=== PATIENT | male | born 1995 | race Caucasian/White ===

== ENCOUNTER 2021-10-12 15:39 | Emergency (ER) | payer MEDICAID ==
[~2021-10-12] VITALS: Ht 170.2 cm; Wt 79.4 kg
[2021-10-12 15:39] VITALS: BP 163/75
--- NOTE | 2021-10-12 15:39 | NUR ---
TANI NUNEZ AND PLACED IN BED 12 BY EMS.
[2021-10-12] MEDS ORDERED: PANTOPRAZOLE 40 MG INJ VIAL IVP ONE (16:10)
[2021-10-12] MEDS ORDERED: METOCLOPRAMIDE 10 MG/2 ML INJ VIAL IVP ONE (16:10)
[2021-10-12] MEDS ORDERED: diphenhydrAMINE 50 MG/ML VIAL IVP ONE (16:10)
[2021-10-12] MEDS ORDERED: NACL 0.9% 1,000 ML IV ONE (16:10)
[2021-10-12] MEDS ORDERED: KETOROLAC 15 MG/ML VIAL IVP ONE (16:10)
[2021-10-12 16:40] LABS: BASOPHILS % (AUTO) 0.4 % (0.0-2.0); EOSINOPHILS % (AUTO) 0.2 % (0.0-4.0); HEMATOCRIT 47.1 % (36-52); HEMOGLOBIN 16.4 g/dL (12.0-18.0); LYMPHOCYTES # (AUTO) 1.4 K/uL (2.0-11.5); LYMPHOCYTES % (AUTO) 16.5 % (20.5-51.1); MEAN CORPUSCULAR HEMOGLOBIN 29 pg (27-31); MEAN CORPUSCULAR HGB CONC 35 g/dL (33-37); MEAN CORPUSCULAR VOLUME 82.4 fL (80-94); MONOCYTES # (AUTO) 0.6 K/uL (0.8-1.0); MONOCYTES % (AUTO) 6.9 % (1.7-9.3); NEUTROPHILS # (AUTO) 6.6 K/uL (1.8-7.7); PLATELET COUNT (AUTO) 238 K/uL (140-450); RED BLOOD CELL COUNT(AUTO) 5.72 MIL/uL (4.20-6.10); RED CELL DISTRIBUTION WIDTH 12.6 % (11.6-13.7); WHITE BLOOD COUNT (AUTO) 8.6 K/uL (4.8-10.8)
--- NOTE | 2021-10-12 17:00 | NUR ---
26 YO M BIBA W C/O ABDOMINAL PAIN WITH N/V X2 DAYS. PT STOPPED SMOKING MARIJUANA 2 DAYS AGO, SEES A GI SPECIALIST FOR "STOMACH ULCERS" HX: ULCERS, GERD NKDA
[2021-10-12 17:06] LABS: ALBUMIN 4.5 g/dL (3.4-5.0); CARBON DIOXIDE 21.8 mmol/L (21-32); CREATININE 1.1 mg/dL (0.6-1.3); POTASSIUM 3.8 mmol/L (3.5-5.1); TOTAL BILIRUBIN 0.7 mg/dL (0.0-1.0)
[2021-10-12] MEDS ORDERED: OMEP20EC11 PO (17:43)
[2021-10-12 19:00] VITALS: BP 163/75
--- NOTE | 2021-10-12 19:02 | NUR ---
Patient discharged with v/s stable. Written and verbal after care instructions given and explained. Patient alert, oriented and verbalized understanding of instructions. Ambulatory with steady gait. All questions addressed prior to discharge. ID band removed. Patient advised to follow up with PMD. Rx of PRILOSEC given. Patient educated on indication of medication including possible reaction and side effects. Opportunity to ask questions provided and answered.
== END 2021-10-12 19:02 | disposition home or self-care (01) ==
LOC: MED 15:39
DX: K29.70 Gastritis, unspecified, without bleeding (principal); Z87.11 Personal history of peptic ulcer disease; Z79.899 Other long term (current) drug therapy
CPT/HCPCS: 36415; 80053; 83690; 85025; 96374; 96375; 99284; C9113; J1200; J1885; J2765; J7030

== ENCOUNTER 2022-01-24 08:48 | Emergency (ER) | payer SELFPAY ==
[~2022-01-24] VITALS: Ht 170.2 cm; Wt 79.8 kg
[~2022-01-24 08:48] MED LIST: OMEP20EC11 PO
[2022-01-24 08:52] VITALS: BP 127/57
--- NOTE | 2022-01-24 08:56 | NUR ---
pt ambulated to bed 12
--- NOTE | 2022-01-24 08:57 | NUR ---
26/M WALKED IN C/O EPIGASTRIC PAIN ONSET 2 DAYS ACCOMPANIED BY NVD. AFEBRILE AT BEDSIDE. NKA PMH: DENIES
[2022-01-24] MEDS ORDERED: NACL 0.9% 1,000 ML IV ONE (09:40)
[2022-01-24] MEDS ORDERED: KETOROLAC 30 MG/ML VIAL IVP ONE (09:40)
[2022-01-24] MEDS ORDERED: ONDANSETRON 4 MG/2 ML VIAL IVP ONE (09:40)
[2022-01-24] MEDS ORDERED: KETOROLAC 30 MG/ML VIAL ONE (09:40)
[2022-01-24] MEDS: LORazepam 1 MG TAB PO ONE ×2 (09:57→10:02)
--- NOTE | 2022-01-24 10:03 | NUR ---
PT INITIALLY REFUSED PO ATIVAN AND REQUESTED IV. PT NOTIFIED NO IV MED AVAILABLE. PT THEN AGREED TO TAKE ATIVAN PO AGAIN
[2022-01-24] MEDS ORDERED: diphenhydrAMINE 50 MG/ML VIAL IVP ONE (11:05)
[2022-01-24] MEDS ORDERED: ATA25 PO (11:16)
[2022-01-24] MEDS ORDERED: PROM25TA27 PO (11:16)
[2022-01-24 11:35] VITALS: BP 127/82
--- NOTE | 2022-01-24 11:35 | NUR ---
Patient discharged with v/s stable. Written and verbal after care instructions given and explained. Patient verbalized understanding. Ambulatory with steady gait. All questions addressed prior to discharge. Advised to follow up with PMD.
== END 2022-01-24 11:35 | disposition home or self-care (01) ==
LOC: MED 08:48
DX: R10.13 Epigastric pain (principal); F41.9 Anxiety disorder, unspecified; F12.90 Cannabis use, unspecified, uncomplicated
CPT/HCPCS: 96374; 96375; 99284; J1200; J1885; J2405; 81002

== ENCOUNTER 2022-01-24 20:29 | Emergency (ER) | payer MEDICAID ==
[~2022-01-24] VITALS: Ht 170.2 cm; Wt 79.4 kg
[~2022-01-24 20:29] MED LIST changes: +ATA25 PO; +PROM25TA27 PO
[2022-01-24 20:31] VITALS: BP 143/102
--- NOTE | 2022-01-24 20:37 | NUR ---
PT MAYRA ALS. TAKEN TO BED 7
--- NOTE | 2022-01-24 20:39 | NUR ---
nauseated and multiple vomiting x1day; received [id number] ivp by the ambulance. aaox4, room air, ambulatory, 10 pain of the abdomen NKA HX: ulcer
[2022-01-24] MEDS ORDERED: HALOPERIDOL IM 5 MG/ML VIAL IVP ONE ×2 (20:50→21:55)
[2022-01-24] MEDS ORDERED: diphenhydrAMINE 50 MG/ML VIAL IVP ONE ×2 (20:50→22:10)
[2022-01-24] MEDS ORDERED: LORazepam 2 MG/ML VIAL IVP ONE ×2 (20:50→22:10)
[2022-01-24] MEDS ORDERED: NACL 0.9% 1,000 ML IV ONE (20:50)
--- NOTE | 2022-01-24 21:01 | NUR ---
stated smoke marijuana everyday
[2022-01-24 23:44] VITALS: BP 138/98
--- NOTE | 2022-01-24 23:45 | NUR ---
DCPatient discharged with v/s stable BY ERMD. Written and verbal after care instructions given and explained. Patient verbalized understanding. Ambulatory with steady gait. All questions addressed prior to discharge. Advised to follow up with PMD.
== END 2022-01-24 23:45 | disposition home or self-care (01) ==
LOC: MED 20:29
DX: F19.10 Other psychoactive substance abuse, uncomplicated (principal); F14.90 Cocaine use, unspecified, uncomplicated; F12.90 Cannabis use, unspecified, uncomplicated; F15.90 Other stimulant use, unspecified, uncomplicated
CPT/HCPCS: 96361; 96374; 96375; 96376; 99284; J1200; J1630; J2060; J7030

== ENCOUNTER 2022-01-25 22:41 | Emergency (ER) | payer MEDICAID ==
[~2022-01-25] VITALS: Ht 167.6 cm; Wt 68.0 kg
[2022-01-25 22:45] VITALS: BP 128/74
--- NOTE | 2022-01-25 22:45 | NUR ---
PT MAYRA BRAGG, TAKEN TO LOBBY
--- NOTE | 2022-01-26 00:45 | NUR ---
CALLED BY DR DUTTON, NO ANSWER
--- NOTE | 2022-01-26 00:54 | NUR ---
CALLED FROM LOBBY, NO ANSWER. LWBS
[2022-01-26] MEDS ORDERED: ONDA-188 SL (16:34)
== END 2022-01-26 00:54 | disposition left against medical advice (07) ==
LOC: MED 22:41
DX: R10.13 Epigastric pain (principal); Z53.21 Procedure and treatment not carried out due to patient leaving prior to being seen by health care provider

== ENCOUNTER 2022-01-26 11:25 | Emergency (ER) | payer MEDICAID ==
[~2022-01-26] VITALS: Ht 170.2 cm; Wt 79.8 kg
[2022-01-26 11:42] VITALS: BP 146/67
--- NOTE | 2022-01-26 12:25 | NUR ---
pt witnessed laying on floor in front of triage room at this time, security has been called. no fall or trauma.
[2022-01-26 15:03] LABS: BASOPHILS % (AUTO) 0.3 % (0.0-2.0); LYMPHOCYTES # (AUTO) 1.4 K/uL (2.0-11.5); MEAN CORPUSCULAR HEMOGLOBIN 29 pg (27-31); MEAN CORPUSCULAR HGB CONC 35 g/dL (33-37); MEAN CORPUSCULAR VOLUME 82.2 fL (80-94); MONOCYTES # (AUTO) 0.9 K/uL (0.8-1.0); MONOCYTES % (AUTO) 7.2 % (1.7-9.3); NEUTROPHILS # (AUTO) 9.7 K/uL (1.8-7.7); NEUTROPHILS % (AUTO) 80.5 % (42.2-75.2); PLATELET COUNT (AUTO) 221 K/uL (140-450); RED BLOOD CELL COUNT(AUTO) 4.87 MIL/uL (4.20-6.10); RED CELL DISTRIBUTION WIDTH 12.7 % (11.6-13.7)
[2022-01-26 15:30] LABS: ALBUMIN 3.6 g/dL (3.4-5.0); ANION GAP 17.2 (8-16); POTASSIUM 3.2 mmol/L (3.5-5.1); TOTAL BILIRUBIN 0.9 mg/dL (0.0-1.0)
--- NOTE | 2022-01-26 15:35 | NUR ---
26/M BIBA FROM HOME WITH C/O EPIGASTRIC BURNING LIKE PAIN X5 DAYS. PATIENT REPORTS REGULAR USE OF MARIJUANA, DENIES FEVERS, CHILLS, REPORTS N/V, REPORTS BEING SEEN IN THE PAST FOR SAME SYMPTOMS AND GIVEN PRILOSEC WHICH HE STATES HAS PROVIDED NO RELIEF.
[2022-01-26] MEDS ORDERED: HALOPERIDOL IM 5 MG/ML VIAL IM ONE (16:10)
[2022-01-26] MEDS ORDERED: ONDA-188 SL (16:34)
[2022-01-26 16:53] VITALS: BP 120/66
--- NOTE | 2022-01-26 16:53 | NUR ---
Patient discharged with v/s stable. Written and verbal after care instructions ABOUT HEARTBURN AND CANNABINOID HYPEREMESIS SYNDROME given and explained. Patient alert, oriented and verbalized understanding of instructions. Ambulatory with steady gait. All questions addressed prior to discharge. ID band removed. Patient advised to follow up with PMD. Rx of ZOFRAN given. Patient educated on indication of medication including possible reaction and side effects. Opportunity to ask questions provided and answered.
== END 2022-01-26 16:53 | disposition home or self-care (01) ==
LOC: MED 11:25
DX: R11.2 Nausea with vomiting, unspecified (principal); R10.13 Epigastric pain; K21.9 Gastro-esophageal reflux disease without esophagitis; Z79.899 Other long term (current) drug therapy
CPT/HCPCS: 36415; 80053; 83690; 85025; 96372; 99283; J1630

== ENCOUNTER 2022-01-29 06:22 | Emergency (ER) | payer MEDICAID ==
[~2022-01-29] VITALS: Ht 170.2 cm; Wt 79.4 kg
[~2022-01-29 06:22] MED LIST changes: +ONDA-188 SL
--- NOTE | 2022-01-29 06:26 | NUR ---
PT MAYRA ALCARAZS. TAKEN TO BED 4
--- NOTE | 2022-01-29 06:26 | NUR ---
PT BIBA FOR ABD PAIN WITH N/V, PT RECENTLY STOP SMOKING MARIJUANA TWO WEEKS AGO AND HAS BEEN SEEN IN SEVERAL ER's FOR THE SAME REASON. PT PLACED ON GURNEY BY EMS, PT PLACED ON SYSTEMS TRAINER. IV PLACED BY EMS.
[2022-01-29 06:27] VITALS: BP 94/74
--- NOTE | 2022-01-29 06:27 | NUR ---
Dr. Babcock examining patient.
[2022-01-29] MEDS ORDERED: HALOPERIDOL IM 5 MG/ML VIAL IM ONE (06:30)
[2022-01-29] MEDS ORDERED: diphenhydrAMINE 50 MG/ML VIAL IVP ONE ×2 (06:30→08:05)
[2022-01-29] MEDS ORDERED: METOCLOPRAMIDE 10 MG/2 ML INJ VIAL IVP ONE ×2 (06:30→08:05)
--- NOTE | 2022-01-29 07:15 | NUR ---
PT MOVED TO BED 7
--- NOTE | 2022-01-29 07:20 | NUR ---
Report recieved from [facility] for transfer of care.
[2022-01-29 07:25] LABS: BASOPHILS % (AUTO) 0.4 % (0.0-2.0); EOSINOPHILS # (AUTO) 0.1 K/uL (0-0.4); EOSINOPHILS % (AUTO) 1.3 % (0.0-4.0); HEMATOCRIT 42.9 % (36-52); HEMOGLOBIN 15.4 g/dL (12.0-18.0); LYMPHOCYTES # (AUTO) 1.3 K/uL (2.0-11.5); LYMPHOCYTES % (AUTO) 19.9 % (20.5-51.1); MEAN CORPUSCULAR HEMOGLOBIN 29 pg (27-31); MEAN CORPUSCULAR HGB CONC 36 g/dL (33-37); MEAN CORPUSCULAR VOLUME 80.3 fL (80-94); MONOCYTES # (AUTO) 0.6 K/uL (0.8-1.0); MONOCYTES % (AUTO) 8.9 % (1.7-9.3); NEUTROPHILS # (AUTO) 4.4 K/uL (1.8-7.7); NEUTROPHILS % (AUTO) 69.5 % (42.2-75.2); PLATELET COUNT (AUTO) 257 K/uL (140-450); RED BLOOD CELL COUNT(AUTO) 5.34 MIL/uL (4.20-6.10); RED CELL DISTRIBUTION WIDTH 12.7 % (11.6-13.7); WHITE BLOOD COUNT (AUTO) 6.4 K/uL (4.8-10.8)
[2022-01-29] MEDS ORDERED: FAMOTIDINE 20 MG/2 ML VIAL IVP ONE (07:35)
[2022-01-29] MEDS ORDERED: KETOROLAC 15 MG/ML VIAL IVP ONE (07:35)
[2022-01-29] MEDS ORDERED: DICYCLOMINE HCL LIQUID 20 MG, ALUMINUM HYD/MAG/SIMETHICONE 30 ML, LIDOCAINE VISCOUS 2% ... PO ONE ×3 (07:35)
[2022-01-29 07:52] LABS: ALBUMIN 3.7 g/dL (3.4-5.0); ANION GAP 19.1 (8-16); CARBON DIOXIDE 18.1 mmol/L (21-32); CREATININE 1.1 mg/dL (0.6-1.3); POTASSIUM 3.2 mmol/L (3.5-5.1)
[2022-01-29] MEDS ORDERED: DICYCLOMINE HCL LIQUID 10 MG/5 ML UDC ONE (07:54)
[2022-01-29] MEDS ORDERED: ALUMINUM HYD/MAG/SIMETHICONE 30 ML UDC ONE (07:54)
[2022-01-29] MEDS ORDERED: PANTOPRAZOLE 40 MG INJ VIAL IVP ONE (08:00)
--- NOTE | 2022-01-29 08:02 | NUR ---
KATHID MADE AWARE OF PT REFUSAL OF MEDS AND REASON, NEW ORDERS RECEIVED
[2022-01-29] MEDS ORDERED: ACETAMINOPHEN EXTRA STRENGTH 500 MG TAB PO ONE (08:05)
[2022-01-29] MEDS ORDERED: FAMO-90 PO (08:17)
[2022-01-29] MEDS ORDERED: METO-485 PO (08:17)
[2022-01-29] MEDS ORDERED: DIPH25TA53 PO (08:17)
[2022-01-29] MEDS ORDERED: ACET-10509 PO (08:17)
--- NOTE | 2022-01-29 08:37 | NUR ---
Patient discharged with v/s stable. Written and verbal after care instructions given. Patient alert, oriented and verbalized understanding of instructions. Ambulatory with steady gait. All questions addressed prior to discharge. ID band removed. Patient advised to follow up with PMD. Rx of Acetaminopghen, Benadryl, Pepcid, Reglan given. Opportunity to ask questions provided and answered.
[2022-01-29] MEDS ORDERED: PANT40EC PO (08:38)
--- NOTE | 2022-01-29 08:38 | NUR ---
The patient's care was reviewed and supervised by Shelia Mckeon RN.
== END 2022-01-29 08:37 | disposition home or self-care (01) ==
LOC: MED 06:22
DX: K21.9 Gastro-esophageal reflux disease without esophagitis (principal); F12.90 Cannabis use, unspecified, uncomplicated
CPT/HCPCS: 36415; 80053; 83690; 85025; 96372; 96374; 96375; 96376; 99284; C9113; J1200; J1630; J1885; J2765; J3490

== ENCOUNTER 2022-07-20 18:12 | Emergency (ER) | payer MEDICAID ==
[~2022-07-20] VITALS: Ht 170.2 cm; Wt 81.6 kg
[~2022-07-20 18:12] MED LIST changes: +ACET-10509 PO; +DIPH25TA53 PO; +FAMO-90 PO; +METO-485 PO; +PANT40EC PO
[2022-07-20 18:41] VITALS: BP 139/79
--- NOTE | 2022-07-20 20:53 | NUR ---
Dr. Gomez examining patient.
[2022-07-20] MEDS ORDERED: OMEP40EC23 PO (20:55)
[2022-07-20] MEDS ORDERED: METO-486 PO (20:55)
[2022-07-20] MEDS ORDERED: ONDA-188 SL (20:55)
[2022-07-20 21:05] VITALS: BP 139/79
--- NOTE | 2022-07-20 21:05 | NUR ---
LEFT WITHOUT PAPER WORK.Patient discharged with v/s stable. Written and verbal after care instructions given and explained. Patient alert, oriented and verbalized understanding of instructions. Ambulatory with steady gait. All questions addressed prior to discharge. ID band removed. Patient advised to follow up with PMD. Rx of PRILOSEC, REGLAN, ZOFRAN given. Patient educated on indication of medication including possible reaction and side effects. Opportunity to ask questions provided and answered.
== END 2022-07-20 21:05 | disposition home or self-care (01) ==
LOC: MED 18:12
DX: K29.70 Gastritis, unspecified, without bleeding (principal); K21.9 Gastro-esophageal reflux disease without esophagitis; Z79.899 Other long term (current) drug therapy
CPT/HCPCS: 99283

== ENCOUNTER 2022-09-30 10:12 | Emergency (ER) | payer MEDICAID ==
[~2022-09-30] VITALS: Ht 182.9 cm; Wt 81.6 kg
[~2022-09-30 10:12] MED LIST changes: +METO-486 PO; +OMEP40EC23 PO
--- NOTE | 2022-09-30 10:16 | NUR ---
PATIENT BIBA TO BED 7.
[2022-09-30 10:22] VITALS: BP 131/78
--- NOTE | 2022-09-30 10:29 | NUR ---
Patient being evaluated by physician at bedside.
[2022-09-30] MEDS ORDERED: METOCLOPRAMIDE 10 MG/2 ML INJ VIAL IVP ONE (10:35)
[2022-09-30] MEDS ORDERED: NACL 0.9% 1,000 ML IV SCH (10:35)
[2022-09-30] MEDS ORDERED: HALOPERIDOL IM 5 MG/ML VIAL IM ONE (10:35)
[2022-09-30] MEDS ORDERED: diphenhydrAMINE 50 MG/ML VIAL IVP ONE (10:35)
--- NOTE | 2022-09-30 10:42 | NUR ---
X-Ray at bedside.
[2022-09-30 11:35] LABS: BASOPHILS % (AUTO) 0.1 % (0.0-2.0); HEMATOCRIT 47.9 % (36-52); HEMOGLOBIN 17.2 g/dL (12.0-18.0); LYMPHOCYTES # (AUTO) 1.3 K/uL (2.0-11.5); LYMPHOCYTES % (AUTO) 11.5 % (20.5-51.1); MEAN CORPUSCULAR HEMOGLOBIN 29 pg (27-31); MEAN CORPUSCULAR HGB CONC 36 g/dL (33-37); MEAN CORPUSCULAR VOLUME 80.7 fL (80-94); MONOCYTES % (AUTO) 9.2 % (1.7-9.3); NEUTROPHILS # (AUTO) 8.6 K/uL (1.8-7.7); NEUTROPHILS % (AUTO) 79.2 % (42.2-75.2); PLATELET COUNT (AUTO) 212 K/uL (140-450); RED BLOOD CELL COUNT(AUTO) 5.93 MIL/uL (4.20-6.10); RED CELL DISTRIBUTION WIDTH 12.9 % (11.6-13.7); WHITE BLOOD COUNT (AUTO) 10.9 K/uL (4.8-10.8)
[2022-09-30 11:41] LABS: APPEARANCE,URINE CLEAR (CLEAR); BILIRUBIN,URINE 1+ (NEGATIVE); BLOOD, URINE 2+ (NEGATIVE); COLOR,URINE YELLOW (YELLOW); LEUKOCYTE ESTERASE ,URINE NEGATIVE (NEGATIVE); NITRITE, URINE NEGATIVE (NEGATIVE); UGLUCOSE NEGATIVE (NEGATIVE)
--- NOTE | 2022-09-30 11:56 | NUR ---
PT RESTING IN BED RESTING APPEARS TO BE IN NO ACUTE DISTRESS NOTED AT THIS TIME
[2022-09-30 11:58] LABS: ALBUMIN 4.8 g/dL (3.4-5.0); ANION GAP 22.5 (8-16); CARBON DIOXIDE 19.2 mmol/L (21-32); CREATININE 1.4 mg/dL (0.6-1.3)
--- NOTE | 2022-09-30 12:00 | NUR ---
PATIENT ELOPED FROM FACILITY. DISCHARGE INSTRUCTIONS NOT GIVEN TO PATIENT. NOTIFIED.
--- NOTE | 2022-09-30 12:11 | NUR ---
LACTIC ACID 2.1 .MD AND RN MADE AWARE
--- NOTE | 2022-09-30 12:11 | NUR ---
PT ELOPED PRIOR TO RECEIVING RESULTS, STATED HE HAS TO LEAVE NOW ,ER AWARE
[2022-09-30 12:15] LABS: POTASSIUM 2.7 mmol/L (3.5-5.1)
--- NOTE | 2022-09-30 12:17 | NUR ---
CRITICAL K+,2.7, DR VENTURA MADE AWARE, PT ELOPED BEFORE WE RECEIVED RESULT
[2022-09-30 12:23] LABS: RBC,URINE 0-5 /HPF (0-5)
[2022-09-30 12:24] LABS: CALCIUM OXALATE CRYSTALS,UR None Seen /HPF (None Seen); COARSE GRANULAR CASTS,URINE None Seen /LPF (None Seen); FINE GRANULAR CASTS,URINE None Seen /LPF (None Seen); HYALINE CASTS, URINE None Seen /LPF (None Seen); OTHER CASTS, URINE None Seen /LPF (None Seen); OTHER CRYSTALS,URINE None Seen /HPF (None Seen); RED BLOOD CELL CASTS,URINE None Seen /LPF (None Seen); TRICHOMONAS,URINE None Seen /HPF (None Seen); TRIPLE PHOSPHATE CRYSTAL,UR None Seen /HPF (None Seen); URIC ACID CRYSTALS,URINE None Seen /HPF (None Seen); URINE AMORPHOUS URATE None Seen /HPF (None Seen); WAXY CASTS,URINE None Seen /LPF (None Seen); YEAST,URINE None Seen /HPF (None Seen)
== END 2022-09-30 13:00 | disposition left against medical advice (07) ==
LOC: MED 10:12
DX: R11.2 Nausea with vomiting, unspecified (principal); F12.90 Cannabis use, unspecified, uncomplicated; K21.9 Gastro-esophageal reflux disease without esophagitis; Z79.899 Other long term (current) drug therapy
CPT/HCPCS: 36415; 71045; 80053; 81001; 83605; 85025; 87040; 87086; 96374; 96375; 99284; J1200; J1630; J2765

== ENCOUNTER 2022-10-06 11:49 | Emergency (ER) | payer MEDICAID ==
[~2022-10-06] VITALS: Ht 170.2 cm; Wt 91.6 kg
[2022-10-06 11:57] VITALS: BP 129/71
[2022-10-06] MEDS ORDERED: KETOROLAC 30 MG/ML VIAL IM ONE (12:30)
[2022-10-06] MEDS ORDERED: LID5T TP (12:48)
[2022-10-06] MEDS ORDERED: IBUP-2213 PO (12:48)
[2022-10-06] MEDS ORDERED: CYCL-711 PO (12:48)
[2022-10-06] MEDS ORDERED: KETOROLAC 30 MG/ML VIAL ONE (15:04)
--- NOTE | 2022-10-06 15:25 | NUR ---
PAIN MEDS GIVEN
--- NOTE | 2022-10-06 15:29 | NUR ---
Patient discharged with v/s stable. Written and verbal after care instructions given and explained. Patient alert, oriented and verbalized understanding of instructions. Ambulatory with to home. All questions addressed prior to discharge. ID band removed. Patient advised to follow up with PMD. Rx of FLEXIRIL, MOTRIN given. Patient educated on indication of medication including possible reaction and side effects. Opportunity to ask questions provided and answered.
== END 2022-10-06 15:29 | disposition home or self-care (01) ==
LOC: MED 11:49
DX: S39.012A Strain of muscle, fascia and tendon of lower back, initial encounter (principal); K21.9 Gastro-esophageal reflux disease without esophagitis; Z79.899 Other long term (current) drug therapy; V89.2XXA Person injured in unspecified motor-vehicle accident, traffic, initial encounter; Y93.89 Activity, other specified; Y92.89 Other specified places as the place of occurrence of the external cause; Y99.8 Other external cause status
CPT/HCPCS: 72080; 96372; 99283; J1885

== ENCOUNTER 2022-11-02 08:24 | Emergency (ER) | payer MEDICAID, OTHER ==
[~2022-11-02] VITALS: Ht 162.6 cm; Wt 79.8 kg
[~2022-11-02 08:24] MED LIST changes: +CYCL-711 PO; +IBUP-2213 PO; +LID5T TP
[2022-11-02 08:25] VITALS: BP 137/88; PULSE 99; RESP 17; TEMP 97.4; O2SAT 98
--- NOTE | 2022-11-02 08:30 | NUR ---
PT BIB [facility] C/O ABDOMINAL PAIN N/V, SMOKED MARIJUANA YESTERDAY STATES "EVERYTIME I TRY TO QUIT SMOKING THIS HAPPENS" RECEIVED ZOFRAN 4MG ODT LOG GRADER.
[2022-11-02] MEDS ORDERED: METOCLOPRAMIDE 10 MG/2 ML INJ VIAL IVP ONE (08:40)
[2022-11-02] MEDS ORDERED: NACL 0.9% 1,000 ML IV ONE (08:40)
[2022-11-02] MEDS ORDERED: HALOPERIDOL IM 5 MG/ML VIAL IVP ONE (08:55)
[2022-11-02] MEDS ORDERED: diphenhydrAMINE 50 MG/ML VIAL IVP ONE (08:55)
--- NOTE | 2022-11-02 08:59 | NUR ---
VERIFIED HALDOL IVP ORDER FOR PT, PER GAVI REY HALDOL TO BE ADMINISTERED IVP NOT IM, HALDOL OK TO BE GIVEN IVP AT THIS TIME ORDERED.
[2022-11-02 09:12] LABS: BASOPHILS % (AUTO) 0.3 % (0.0-2.0); EOSINOPHILS # (AUTO) 0.1 K/uL (0-0.4); EOSINOPHILS % (AUTO) 0.6 % (0.0-4.0); HEMATOCRIT 48.6 % (36-52); HEMOGLOBIN 16.7 g/dL (12.0-18.0); LYMPHOCYTES # (AUTO) 1.6 K/uL (2.0-11.5); LYMPHOCYTES % (AUTO) 16.8 % (20.5-51.1); MEAN CORPUSCULAR HEMOGLOBIN 29 pg (27-31); MEAN CORPUSCULAR HGB CONC 34 g/dL (33-37); MEAN CORPUSCULAR VOLUME 84.8 fL (80-94); MONOCYTES # (AUTO) 0.6 K/uL (0.8-1.0); MONOCYTES % (AUTO) 6.3 % (1.7-9.3); NEUTROPHILS # (AUTO) 7.2 K/uL (1.8-7.7); PLATELET COUNT (AUTO) 224 K/uL (140-450); RED BLOOD CELL COUNT(AUTO) 5.73 MIL/uL (4.20-6.10); RED CELL DISTRIBUTION WIDTH 13.7 % (11.6-13.7); WHITE BLOOD COUNT (AUTO) 9.5 K/uL (4.8-10.8)
[2022-11-02] MEDS ORDERED: CAPS42.514 TP (09:38)
[2022-11-02] MEDS ORDERED: ONDA-188 SL (09:38)
[2022-11-02 09:40] LABS: ALBUMIN 4.5 g/dL (3.4-5.0); ANION GAP 20.6 (8-16); CARBON DIOXIDE 18.1 mmol/L (21-32); CREATININE 1.2 mg/dL (0.6-1.3); POTASSIUM 3.7 mmol/L (3.5-5.1); TOTAL BILIRUBIN 0.8 mg/dL (0.0-1.0)
[2022-11-02 09:46] VITALS: BP 108/70; PULSE 78; RESP 18; O2SAT 98
[2022-11-03] MEDS ORDERED: BENZ-315 PO (09:03)
[2022-11-03] MEDS ORDERED: HAL5 PO (09:03)
== END 2022-11-02 09:47 | disposition home or self-care (01) ==
LOC: MED 08:24
DX: R11.2 Nausea with vomiting, unspecified (principal); R10.84 Generalized abdominal pain; K21.9 Gastro-esophageal reflux disease without esophagitis; F12.90 Cannabis use, unspecified, uncomplicated; Z79.899 Other long term (current) drug therapy
CPT/HCPCS: 36415; 80053; 83690; 85025; 96361; 96374; 96375; 99284; J1200; J1630; J2765; J7030

== ENCOUNTER 2022-11-03 07:00 | Emergency (ER) | payer MEDICAID ==
[~2022-11-03] VITALS: Ht 175.3 cm; Wt 86.2 kg
[~2022-11-03 07:00] MED LIST changes: +CAPS42.514 TP
[2022-11-03 07:06] VITALS: BP 140/64; PULSE 102; RESP 31; TEMP 97.8; O2SAT 97
--- NOTE | 2022-11-03 07:07 | NUR ---
PT BROUGHT TO BED 9 VIA ETTA
[2022-11-03] MEDS ORDERED: HALOPERIDOL IM 5 MG/ML VIAL IVP ONE (07:15)
[2022-11-03] MEDS ORDERED: NACL 0.9% 1,000 ML IV ONE (07:15)
[2022-11-03] MEDS ORDERED: diphenhydrAMINE 50 MG/ML VIAL IVP ONE (07:15)
[2022-11-03] MEDS ORDERED: KETOROLAC 30 MG/ML VIAL IVP ONE (07:15)
[2022-11-03 08:32] LABS: BASOPHILS % (AUTO) 0.3 % (0.0-2.0); EOSINOPHILS # (AUTO) 0.1 K/uL (0-0.4); EOSINOPHILS % (AUTO) 0.4 % (0.0-4.0); HEMATOCRIT 48.4 % (36-52); HEMOGLOBIN 16.5 g/dL (12.0-18.0); LYMPHOCYTES # (AUTO) 2.2 K/uL (2.0-11.5); LYMPHOCYTES % (AUTO) 15.9 % (20.5-51.1); MEAN CORPUSCULAR HEMOGLOBIN 29 pg (27-31); MEAN CORPUSCULAR HGB CONC 34 g/dL (33-37); MEAN CORPUSCULAR VOLUME 85.9 fL (80-94); MONOCYTES # (AUTO) 0.7 K/uL (0.8-1.0); MONOCYTES % (AUTO) 5.2 % (1.7-9.3); NEUTROPHILS % (AUTO) 78.2 % (42.2-75.2); PLATELET COUNT (AUTO) 261 K/uL (140-450); RED BLOOD CELL COUNT(AUTO) 5.64 MIL/uL (4.20-6.10); RED CELL DISTRIBUTION WIDTH 13.4 % (11.6-13.7)
[2022-11-03 08:49] LABS: ALBUMIN 4.5 g/dL (3.4-5.0); ANION GAP 22.8 (8-16); CARBON DIOXIDE 16.4 mmol/L (21-32); CREATININE 1.3 mg/dL (0.6-1.3); POTASSIUM 3.2 mmol/L (3.5-5.1)
[2022-11-03] MEDS ORDERED: BENZ-315 PO (09:03)
[2022-11-03] MEDS ORDERED: HAL5 PO (09:03)
--- NOTE | 2022-11-03 09:13 | NUR ---
Patient discharged with v/s stable. Written and verbal after care instructions given and explained. Patient alert, oriented and verbalized understanding of instructions. Ambulatory with steady gait. All questions addressed prior to discharge. ID band removed. Patient advised to follow up with PMD. Rx of MAINE ALLEN given. Patient educated on indication of medication including possible reaction and side effects. Opportunity to ask questions provided and answered.
== END 2022-11-03 09:13 | disposition home or self-care (01) ==
LOC: MED 07:00
DX: R10.13 Epigastric pain (principal); K21.9 Gastro-esophageal reflux disease without esophagitis; Z79.899 Other long term (current) drug therapy
CPT/HCPCS: 36415; 80053; 82150; 83690; 85025; 96361; 96374; 96375; 99284; J1200; J1630; J1885; J7030

== ENCOUNTER 2022-11-05 15:40 | Emergency (ER) | payer MEDICAID ==
[~2022-11-05] VITALS: Ht 172.7 cm; Wt 79.4 kg
[~2022-11-05 15:40] MED LIST changes: +BENZ-315 PO; +HAL5 PO
[2022-11-05 15:41] VITALS: BP 116/71; PULSE 73; RESP 17; TEMP 97.4; O2SAT 98
[2022-11-05] MEDS ORDERED: diphenhydrAMINE 50 MG/ML VIAL IVP ONE (15:45)
[2022-11-05] MEDS ORDERED: HALOPERIDOL IM 5 MG/ML VIAL IVP ONE (15:45)
[2022-11-05] MEDS ORDERED: KETOROLAC 30 MG/ML VIAL IVP ONE (15:45)
[2022-11-05] MEDS ORDERED: BENZTROPINE 2 MG/2 ML AMP IVP ONE (16:15)
[2022-11-05 16:26] VITALS: O2SAT 98
--- NOTE | 2022-11-05 17:10 | NUR ---
Note diego in ED - 11/05/22 at 1725 by MARQUEZ Patient discharged with v/s stable. Written and verbal after care instructions given. Patient verbalized understanding. Ambulatory with steady gait. All questions addressed prior to discharge. Advised to follow up with PMD.
--- NOTE | 2022-11-05 17:10 | NUR ---
IV removed, catheter intact and site benign. Applied folded 4x4 gauze and tape to stop bleeding.
[2022-11-05 17:14] VITALS: BP 116/53; PULSE 67; RESP 18; TEMP 98.5
--- NOTE | 2022-11-05 17:14 | NUR ---
Patient discharged with v/s stable. Written and verbal after care instructions given. Patient verbalized understanding. Ambulatory with steady gait. All questions addressed prior to discharge. Advised to follow up with PMD.
--- NOTE | 2022-11-05 17:31 | NUR ---
The patient's care was reviewed and supervised by Charlotte 04 ED, RN.
== END 2022-11-05 17:14 | disposition home or self-care (01) ==
LOC: MED 15:40
DX: R11.15 Cyclical vomiting syndrome unrelated to migraine (principal); F12.99 Cannabis use, unspecified with unspecified cannabis-induced disorder; K21.9 Gastro-esophageal reflux disease without esophagitis; F12.90 Cannabis use, unspecified, uncomplicated; Z79.899 Other long term (current) drug therapy
CPT/HCPCS: 96374; 96375; 99284; J0515; J1200; J1630; J1885

== ENCOUNTER 2022-11-07 08:32 | Emergency (ER) | payer MEDICAID ==
[~2022-11-07] VITALS: Ht 172.7 cm; Wt 90.7 kg
--- NOTE | 2022-11-07 08:53 | NUR ---
ALS- [facility] NUNEZ TO ER BED 11
[2022-11-07 09:01] VITALS: BP 112/67; PULSE 89; RESP 20; TEMP 98; O2SAT 98
[2022-11-07] MEDS ORDERED: NACL 0.9% 1,000 ML IV ONE (09:10)
[2022-11-07] MEDS ORDERED: diphenhydrAMINE 50 MG/ML VIAL IVP ONE (09:10)
[2022-11-07] MEDS ORDERED: HALOPERIDOL IM 5 MG/ML VIAL IVP ONE (09:10)
[2022-11-07 10:00] LABS: ALBUMIN 3.8 g/dL (3.4-5.0); ANION GAP 14.9 (8-16); CARBON DIOXIDE 22.4 mmol/L (21-32); POTASSIUM 3.3 mmol/L (3.5-5.1); TOTAL BILIRUBIN 1.1 mg/dL (0.0-1.0)
--- NOTE | 2022-11-07 10:13 | NUR ---
NO VOMITING NOTED,PT ASKING FOR FOOD "I'M HUNGRY"
[2022-11-07 11:11] VITALS: BP 112/67; PULSE 89; RESP 20; TEMP 98; O2SAT 98
[2022-11-07] MEDS ORDERED: ONDA-188 SL (21:25)
[2022-11-07] MEDS ORDERED: MAG-27 PO (21:25)
== END 2022-11-07 11:17 | disposition home or self-care (01) ==
LOC: MED 08:32
DX: R11.2 Nausea with vomiting, unspecified (principal); F12.90 Cannabis use, unspecified, uncomplicated; K21.9 Gastro-esophageal reflux disease without esophagitis; Z79.899 Other long term (current) drug therapy
CPT/HCPCS: 36415; 80053; 83690; 96361; 96374; 96375; 99284; J1200; J1630; 80305; 81003; 83735; 85025; 96360; 96372; 99283; J7030

== ENCOUNTER 2022-11-07 17:35 | Emergency (ER) | payer MEDICAID ==
[~2022-11-07] VITALS: Ht 170.2 cm; Wt 81.6 kg
[2022-11-07 17:36] VITALS: BP 121/73; PULSE 77; RESP 20; TEMP 96.5; O2SAT 95
--- NOTE | 2022-11-07 17:36 | NUR ---
PATIENT BROUGHT IN BY [facility] TO ER BED 09
--- NOTE | 2022-11-07 18:13 | NUR ---
RESTING IN BED, NO VOMITING, "I WANTED IT IV, NOT PILLS, MAN!"
--- NOTE | 2022-11-07 18:39 | NUR ---
DR POLLACK AT BEDSIDE FOR EXAM. NO VOMITING AT THIS TIME
[2022-11-07] MEDS ORDERED: HALOPERIDOL IM 5 MG/ML VIAL IM ONE (18:40)
[2022-11-07] MEDS ORDERED: NACL 0.9% 1,000 ML IV ONE (18:40)
[2022-11-07 18:59] LABS: BASOPHILS % (AUTO) 0.4 % (0.0-2.0); EOSINOPHILS % (AUTO) 0.6 % (0.0-4.0); HEMATOCRIT 42.8 % (36-52); HEMOGLOBIN 14.5 g/dL (12.0-18.0); LYMPHOCYTES # (AUTO) 1.6 K/uL (2.0-11.5); LYMPHOCYTES % (AUTO) 21.1 % (20.5-51.1); MEAN CORPUSCULAR HEMOGLOBIN 29 pg (27-31); MEAN CORPUSCULAR HGB CONC 34 g/dL (33-37); MEAN CORPUSCULAR VOLUME 85.5 fL (80-94); MONOCYTES # (AUTO) 0.6 K/uL (0.8-1.0); MONOCYTES % (AUTO) 7.3 % (1.7-9.3); NEUTROPHILS # (AUTO) 5.4 K/uL (1.8-7.7); NEUTROPHILS % (AUTO) 70.6 % (42.2-75.2); PLATELET COUNT (AUTO) 186 K/uL (140-450); RED CELL DISTRIBUTION WIDTH 13.1 % (11.6-13.7); WHITE BLOOD COUNT (AUTO) 7.6 K/uL (4.8-10.8)
--- NOTE | 2022-11-07 19:06 | NUR ---
no urge to void at this time
--- NOTE | 2022-11-07 19:13 | NUR ---
Patient resting in bed, A/Ox4, chest rise and fall symmetrical, no s/s of distress, on monitor, call light within reach.
[2022-11-07 19:17] LABS: ALBUMIN 3.6 g/dL (3.4-5.0); ANION GAP 12.2 (8-16); CARBON DIOXIDE 25.8 mmol/L (21-32); CREATININE 1.1 mg/dL (0.6-1.3); MAGNESIUM 2.2 mg/dL (1.8-2.4); TOTAL BILIRUBIN 0.5 mg/dL (0.0-1.0)
[2022-11-07 19:50] VITALS: TEMP 96.5
[2022-11-07] MEDS ORDERED: POTASSIUM CHLORIDE 10 MEQ TABER PO ONE (20:05)
[2022-11-07 20:38] LABS: APPEARANCE,URINE CLEAR (CLEAR); BILIRUBIN,URINE NEGATIVE (NEGATIVE); BLOOD, URINE NEGATIVE (NEGATIVE); COLOR,URINE YELLOW (YELLOW); LEUKOCYTE ESTERASE ,URINE NEGATIVE (NEGATIVE); NITRITE, URINE NEGATIVE (NEGATIVE); UGLUCOSE NEGATIVE (NEGATIVE)
[2022-11-07 20:46] LABS: BARBITURATE, URINE NEGATIVE ng/ml (NEG <=200); BENZODIAZEPINE, URINE NEGATIVE ng/mL (NEG <=200); CANNABINOID, URINE POSITIVE ng/mL (NEG <=50); COCAINE, URINE NEGATIVE ng/mL (NEG <=300); OPIATE, URINE NEGATIVE ng/mL (NEG <=2000); PHENCYCLIDINE SCREEN,URINE NEGATIVE ng/mL (NEG <=25)
[2022-11-07] MEDS ORDERED: ONDA-188 SL (21:25)
[2022-11-07] MEDS ORDERED: MAG-27 PO (21:25)
[2022-11-07 21:49] VITALS: BP 121/65; PULSE 73; RESP 19; O2SAT 98
--- NOTE | 2022-11-07 21:49 | NUR ---
Patient discharged with v/s stable. Written and verbal after care instructions given and explained. Patient alert, oriented and verbalized understanding of instructions. Ambulatory with steady gait. All questions addressed prior to discharge. ID band removed. Patient advised to follow up with PMD. Rx of MAG HYDROX ALUMINUM ONDANSETRON given. Patient educated on indication of medication including possible reaction and side effects. Opportunity to ask questions provided and answered.
== END 2022-11-07 21:49 | disposition home or self-care (01) ==
LOC: MED 17:35
DX: R11.2 Nausea with vomiting, unspecified (principal); F15.90 Other stimulant use, unspecified, uncomplicated; F17.200 Nicotine dependence, unspecified, uncomplicated; Z79.899 Other long term (current) drug therapy
CPT/HCPCS: 36415; 80053; 80305; 81003; 83690; 83735; 85025; 96360; 96372; 99283; J1630; J7030

== ENCOUNTER 2022-12-04 18:19 | Emergency (ER) | payer MEDICAID ==
[~2022-12-04] VITALS: Ht 170.2 cm; Wt 81.6 kg
[~2022-12-04 18:19] MED LIST changes: +MAG-27 PO
[2022-12-04 18:23] VITALS: BP 122/79; PULSE 80; RESP 18; TEMP 97.8; O2SAT 98
[2022-12-04] MEDS ORDERED: METO-485 PO (20:56)
[2022-12-04] MEDS ORDERED: METOCLOPRAMIDE 10 MG TAB PO ONE (21:05)
[2022-12-04] MEDS ORDERED: FAMOTIDINE 20 MG TAB PO ONE (21:05)
[2022-12-04] MEDS ORDERED: HALOPERIDOL IM 5 MG/ML VIAL IM ONE (21:20)
[2022-12-04] MEDS ORDERED: ALUMINUM HYD/MAG/SIMETHICONE 30 ML UDC PO ONE (21:20)
[2022-12-04] MEDS ORDERED: diphenhydrAMINE 50 MG/ML VIAL IM ONE (21:20)
[2022-12-04 23:30] VITALS: BP 128/73; PULSE 82; RESP 19; TEMP 98; O2SAT 98
== END 2022-12-04 23:24 | disposition home or self-care (01) ==
LOC: MED 18:19
DX: R11.2 Nausea with vomiting, unspecified (principal); F14.90 Cocaine use, unspecified, uncomplicated; F12.90 Cannabis use, unspecified, uncomplicated; Z79.899 Other long term (current) drug therapy
CPT/HCPCS: 96372; 99284; J1200; J1630; J8597

== ENCOUNTER 2022-12-07 05:50 | Emergency (ER) | payer SELFPAY ==
[~2022-12-07] VITALS: Ht 172.7 cm; Wt 81.6 kg
[2022-12-07 05:55] VITALS: BP 112/83; PULSE 87; RESP 20; TEMP 96.8; O2SAT 97
[2022-12-07] MEDS ORDERED: diphenhydrAMINE 50 MG/ML VIAL IVP ONE ×2 (06:25→07:05)
[2022-12-07] MEDS ORDERED: HALOPERIDOL IM 5 MG/ML VIAL IM ONE (06:25)
[2022-12-07] MEDS ORDERED: LORazepam 2 MG/ML VIAL IVP ONE ×2 (06:35→07:05)
[2022-12-07] MEDS ORDERED: CAPS42.514 TP (07:57)
[2022-12-07 08:46] VITALS: BP 117/64; PULSE 91; RESP 16; TEMP 97.1; O2SAT 98
== END 2022-12-07 08:46 | disposition home or self-care (01) ==
LOC: MED 05:50
DX: R11.10 Vomiting, unspecified (principal); F12.90 Cannabis use, unspecified, uncomplicated; R10.9 Unspecified abdominal pain; Z79.899 Other long term (current) drug therapy
CPT/HCPCS: 96372; 96374; 96375; 96376; 99284; J1200; J1630; J2060

== ENCOUNTER 2022-12-22 07:59 | Emergency (ER) | payer MEDICAID ==
[~2022-12-22] VITALS: Ht 172.7 cm; Wt 81.6 kg
[2022-12-22 08:03] VITALS: BP 136/87; PULSE 77; RESP 18; TEMP 97.4; O2SAT 96
[2022-12-22 10:40] VITALS: O2SAT 96
[2022-12-22 11:06] LABS: BASOPHILS % (AUTO) 0.3 % (0.0-2.0); EOSINOPHILS # (AUTO) 0.1 K/uL (0-0.4); EOSINOPHILS % (AUTO) 0.8 % (0.0-4.0); HEMOGLOBIN 16.7 g/dL (12.0-18.0); LYMPHOCYTES % (AUTO) 8.4 % (20.5-51.1); MEAN CORPUSCULAR HEMOGLOBIN 29 pg (27-31); MEAN CORPUSCULAR HGB CONC 34 g/dL (33-37); MEAN CORPUSCULAR VOLUME 84.5 fL (80-94); MONOCYTES # (AUTO) 0.5 K/uL (0.8-1.0); MONOCYTES % (AUTO) 4.3 % (1.7-9.3); NEUTROPHILS % (AUTO) 86.2 % (42.2-75.2); PLATELET COUNT (AUTO) 212 K/uL (140-450); RED CELL DISTRIBUTION WIDTH 13.3 % (11.6-13.7); WHITE BLOOD COUNT (AUTO) 11.6 K/uL (4.8-10.8)
[2022-12-22 11:14] LABS: ALBUMIN 4.4 g/dL (3.4-5.0); ANION GAP 17.8 (8-16); CALCIUM 9.4 mg/dL (8.5-10.1); CARBON DIOXIDE 19.7 mmol/L (21-32); CREATININE 1.1 mg/dL (0.6-1.3); POTASSIUM 3.5 mmol/L (3.5-5.1); TOTAL BILIRUBIN 0.9 mg/dL (0.0-1.0); TOTAL PROTEIN, SERUM 7.8 g/dL (6.4-8.2)
== END 2022-12-22 11:30 | disposition left against medical advice (07) ==
LOC: MED 07:59
DX: R10.13 Epigastric pain (principal); R11.2 Nausea with vomiting, unspecified; F12.90 Cannabis use, unspecified, uncomplicated; Z79.899 Other long term (current) drug therapy
CPT/HCPCS: 36415; 71045; 80053; 83690; 85025; 99284

== ENCOUNTER 2022-12-26 04:44 | Emergency (ER) | payer MEDICAID ==
[~2022-12-26] VITALS: Ht 170.2 cm; Wt 81.6 kg
[2022-12-26 04:44] VITALS: BP 140/90; PULSE 90; RESP 17; TEMP 98.8; O2SAT 98
[2022-12-26] MEDS ORDERED: LORazepam 2 MG/ML VIAL IVP ONE ×2 (04:50→05:20)
[2022-12-26] MEDS ORDERED: ALUMINUM HYD/MAG/SIMETHICONE 30 ML UDC PO ONE (04:50)
[2022-12-26] MEDS ORDERED: NACL 0.9% 1,000 ML IV ONE (04:50)
[2022-12-26] MEDS ORDERED: HALOPERIDOL IM 5 MG/ML VIAL IM ONE (04:50)
[2022-12-26 05:33] VITALS: O2SAT 99
[2022-12-26 06:56] VITALS: BP 96/55; PULSE 91; RESP 15; O2SAT 98
== END 2022-12-26 06:56 | disposition home or self-care (01) ==
LOC: MED 04:44
DX: R11.2 Nausea with vomiting, unspecified (principal); R10.10 Upper abdominal pain, unspecified; K21.9 Gastro-esophageal reflux disease without esophagitis; F12.90 Cannabis use, unspecified, uncomplicated; Z79.899 Other long term (current) drug therapy
CPT/HCPCS: 96372; 99283; J1630; J2060; J7030

== ENCOUNTER 2022-12-28 06:00 | Emergency (ER) | payer MEDICAID ==
[~2022-12-28] VITALS: Ht 175.3 cm; Wt 79.4 kg
[2022-12-28 06:00] VITALS: BP 98/66; PULSE 77; RESP 16; TEMP 97.8; O2SAT 98
[2022-12-28 07:41] VITALS: TEMP 97.9
[2022-12-28] MEDS: NACL 0.9% 1,000 ML IV SCH (09:06)
[2022-12-28] MEDS: OLANZapine 5 MG ODT PO ONE (09:19)
[2022-12-28 09:40] LABS: BASOPHILS % (AUTO) 0.2 % (0.0-2.0); EOSINOPHILS % (AUTO) 0.2 % (0.0-4.0); HEMATOCRIT 44.4 % (36-52); HEMOGLOBIN 15.6 g/dL (12.0-18.0); LYMPHOCYTES # (AUTO) 1.3 K/uL (2.0-11.5); LYMPHOCYTES % (AUTO) 14.9 % (20.5-51.1); MEAN CORPUSCULAR HEMOGLOBIN 29 pg (27-31); MEAN CORPUSCULAR HGB CONC 35 g/dL (33-37); MEAN CORPUSCULAR VOLUME 82.4 fL (80-94); MONOCYTES # (AUTO) 0.6 K/uL (0.8-1.0); MONOCYTES % (AUTO) 7.1 % (1.7-9.3); NEUTROPHILS # (AUTO) 6.7 K/uL (1.8-7.7); NEUTROPHILS % (AUTO) 77.6 % (42.2-75.2); PLATELET COUNT (AUTO) 199 K/uL (140-450); RED BLOOD CELL COUNT(AUTO) 5.39 MIL/uL (4.20-6.10); RED CELL DISTRIBUTION WIDTH 12.7 % (11.6-13.7); WHITE BLOOD COUNT (AUTO) 8.7 K/uL (4.8-10.8)
[2022-12-28 09:55] LABS: ALBUMIN 4.2 g/dL (3.4-5.0); ANION GAP 14.7 (8-16); CALCIUM 8.6 mg/dL (8.5-10.1); CARBON DIOXIDE 24.8 mmol/L (21-32); POTASSIUM 3.5 mmol/L (3.5-5.1); TOTAL PROTEIN, SERUM 7.1 g/dL (6.4-8.2)
[2022-12-28] MEDS: FAMOTIDINE 20 MG TAB PO ONE (10:05)
[2022-12-28] MEDS: ONDANSETRON 4 MG ODT PO ONE (10:05)
[2022-12-28] MEDS: DICYCLOMINE 10 MG CAP PO ONE (10:06)
[2022-12-28] MEDS: ALUMINUM HYD/MAG/SIMETHICONE 30 ML UDC PO ONE (10:08)
[2022-12-28 10:35] VITALS: BP 124/80; PULSE 99; RESP 17; O2SAT 98
== END 2022-12-28 10:26 | disposition home or self-care (01) ==
LOC: MED 06:00
DX: R11.0 Nausea (principal); R10.13 Epigastric pain; K21.9 Gastro-esophageal reflux disease without esophagitis; Z79.899 Other long term (current) drug therapy
CPT/HCPCS: 36415; 80053; 83690; 85025; 96360; 99284; J7030; Q0162

== ENCOUNTER 2023-01-01 15:06 | Inpatient (IN) | payer MEDICAID ==
[~2023-01-01] VITALS: Ht 175.3 cm; Wt 79.4 kg
[2023-01-01 15:13] VITALS: BP 134/70; PULSE 95; RESP 20; TEMP 96.7; O2SAT 99
[2023-01-01] MEDS ORDERED: NACL 0.9% 1,000 ML IV ONE (15:15)
[2023-01-01] MEDS ORDERED: ONDANSETRON 4 MG/2 ML VIAL IVP ONE ×2 (15:15→17:35)
[2023-01-01 15:56] LABS: BASOPHILS % (AUTO) 0.2 % (0.0-2.0); HEMATOCRIT 43.9 % (36-52); HEMOGLOBIN 15.5 g/dL (12.0-18.0); LYMPHOCYTES # (AUTO) 1.1 K/uL (2.0-11.5); LYMPHOCYTES % (AUTO) 11.6 % (20.5-51.1); MEAN CORPUSCULAR HEMOGLOBIN 29 pg (27-31); MEAN CORPUSCULAR HGB CONC 35 g/dL (33-37); MEAN CORPUSCULAR VOLUME 81.5 fL (80-94); MONOCYTES # (AUTO) 0.8 K/uL (0.8-1.0); MONOCYTES % (AUTO) 8.4 % (1.7-9.3); NEUTROPHILS # (AUTO) 7.9 K/uL (1.8-7.7); NEUTROPHILS % (AUTO) 79.8 % (42.2-75.2); PLATELET COUNT (AUTO) 197 K/uL (140-450); RED BLOOD CELL COUNT(AUTO) 5.38 MIL/uL (4.20-6.10); RED CELL DISTRIBUTION WIDTH 12.7 % (11.6-13.7); WHITE BLOOD COUNT (AUTO) 9.9 K/uL (4.8-10.8)
[2023-01-01 16:25] LABS: ANION GAP 20.9 (8-16); CARBON DIOXIDE 20.6 mmol/L (21-32); CREATININE 1.1 mg/dL (0.6-1.3); POTASSIUM 3.5 mmol/L (3.5-5.1); TOTAL BILIRUBIN 1.1 mg/dL (0.0-1.0); TOTAL PROTEIN, SERUM 7.8 g/dL (6.4-8.2)
[2023-01-01 16:30] LABS: CALCIUM 9.2 mg/dL (8.5-10.1)
[2023-01-01] MEDS ORDERED: ONDANSETRON 4 MG/2 ML VIAL ONE (17:32)
[2023-01-01] MEDS ORDERED: diphenhydrAMINE 50 MG/ML VIAL IVP ONE ×2 (17:35→18:50)
[2023-01-01 17:51] VITALS: O2SAT 98
[2023-01-01] MEDS ORDERED: HALOPERIDOL IM 5 MG/ML VIAL IVP ONE ×2 (18:15→20:35)
[2023-01-01] MEDS ORDERED: LORazepam 2 MG/ML VIAL IVP ONE (20:35)
[2023-01-02] MEDS ORDERED: ONDANSETRON 4 MG/2 ML VIAL ONE (00:10)
[2023-01-02] MEDS: NACL 0.9% 1,000 ML IV SCH ×3 (00:17→16:53)
[2023-01-02] MEDS: ONDANSETRON 4 MG/2 ML VIAL IVP SCH ×5 (00:19→16:00)
[2023-01-02] MEDS ORDERED: LORazepam 2 MG/ML VIAL IVP ONE (03:10)
[2023-01-02 04:27] LABS: BASOPHILS % (AUTO) 0.3 % (0.0-2.0); EOSINOPHILS % (AUTO) 0.2 % (0.0-4.0); HEMOGLOBIN 14.4 g/dL (12.0-18.0); LYMPHOCYTES # (AUTO) 1.3 K/uL (2.0-11.5); LYMPHOCYTES % (AUTO) 15.7 % (20.5-51.1); MEAN CORPUSCULAR HEMOGLOBIN 29 pg (27-31); MEAN CORPUSCULAR HGB CONC 36 g/dL (33-37); MEAN CORPUSCULAR VOLUME 80.5 fL (80-94); MONOCYTES # (AUTO) 0.9 K/uL (0.8-1.0); MONOCYTES % (AUTO) 10.3 % (1.7-9.3); NEUTROPHILS # (AUTO) 6.3 K/uL (1.8-7.7); NEUTROPHILS % (AUTO) 73.5 % (42.2-75.2); PLATELET COUNT (AUTO) 183 K/uL (140-450); RED BLOOD CELL COUNT(AUTO) 4.97 MIL/uL (4.20-6.10); RED CELL DISTRIBUTION WIDTH 12.8 % (11.6-13.7); WHITE BLOOD COUNT (AUTO) 8.6 K/uL (4.8-10.8)
[2023-01-02 04:57] LABS: ANION GAP 16.4 (8-16); CALCIUM 8.1 mg/dL (8.5-10.1); CARBON DIOXIDE 21.1 mmol/L (21-32); POTASSIUM 3.5 mmol/L (3.5-5.1)
[2023-01-02 07:30] VITALS: PULSE 103; RESP 20; O2SAT 100
[2023-01-02 08:00] VITALS: BP 118/88; PULSE 103; PULSE 75; RESP 20; TEMP 97.8; O2SAT 100
[2023-01-02] MEDS ORDERED: lisinopriL 20 MG TAB PO SCH (09:00)
[2023-01-02] MEDS ORDERED: CLOPIDOGREL 75 MG TAB PO SCH (09:00)
[2023-01-02] MEDS ORDERED: ATORVASTATIN 20 MG TAB PO SCH (09:00)
[2023-01-02 12:00] VITALS: BP 109/42; PULSE 100; PULSE 69; RESP 18; TEMP 97.5; O2SAT 100
[2023-01-02] MEDS: PROMETHAZINE 25 MG TAB PO PRN ×2 (15:26→22:58)
[2023-01-02 16:00] VITALS: BP 130/76; PULSE 101; PULSE 94; RESP 21; TEMP 97.8; O2SAT 100
[2023-01-02 20:00] VITALS: PULSE 80; RESP 18
[2023-01-03] VITALS: BP 125/78; PULSE 90; RESP 18; TEMP 98.8; O2SAT 99
[2023-01-03] MEDS: NACL 0.9% 1,000 ML IV SCH (02:50)
[2023-01-03] MEDS ORDERED: PANTOPRAZOLE 40 MG INJ VIAL IVP STA (02:54)
[2023-01-03] MEDS ORDERED: PANTOPRAZOLE 40 MG INJ VIAL ONE (04:02)
[2023-01-03] MEDS: ONDANSETRON 4 MG/2 ML VIAL IVP PRN ×2 (04:09→08:53)
[2023-01-03 05:21] LABS: BASOPHILS % (AUTO) 0.3 % (0.0-2.0); EOSINOPHILS # (AUTO) 0.1 K/uL (0-0.4); EOSINOPHILS % (AUTO) 0.8 % (0.0-4.0); HEMATOCRIT 40.6 % (36-52); LYMPHOCYTES # (AUTO) 1.6 K/uL (2.0-11.5); LYMPHOCYTES % (AUTO) 19.4 % (20.5-51.1); MEAN CORPUSCULAR HEMOGLOBIN 29 pg (27-31); MEAN CORPUSCULAR HGB CONC 35 g/dL (33-37); MEAN CORPUSCULAR VOLUME 82.9 fL (80-94); MONOCYTES # (AUTO) 0.8 K/uL (0.8-1.0); NEUTROPHILS # (AUTO) 5.9 K/uL (1.8-7.7); NEUTROPHILS % (AUTO) 70.5 % (42.2-75.2); PLATELET COUNT (AUTO) 189 K/uL (140-450); RED BLOOD CELL COUNT(AUTO) 4.89 MIL/uL (4.20-6.10); RED CELL DISTRIBUTION WIDTH 12.9 % (11.6-13.7); WHITE BLOOD COUNT (AUTO) 8.4 K/uL (4.8-10.8)
[2023-01-03 05:57] LABS: ANION GAP 14.2 (8-16); CALCIUM 8.2 mg/dL (8.5-10.1); CARBON DIOXIDE 25.2 mmol/L (21-32); CREATININE 0.9 mg/dL (0.6-1.3); POTASSIUM 3.4 mmol/L (3.5-5.1)
[2023-01-03 08:08] VITALS: PULSE 79; RESP 20
[2023-01-03] MEDS ORDERED: PANTOPRAZOLE 40 MG INJ VIAL IVP SCH ×2 (09:00→21:00)
[2023-01-03] MEDS ORDERED: POTASSIUM CHLORIDE 10 MEQ TABER PO SCH (10:19)
[2023-01-03] MEDS ORDERED: HYDROcodone/APAP 5/325 MG 1 TAB TAB PO PRN (10:20)
[2023-01-03] MEDS ORDERED: ONDA-188 SL (12:46)
[2023-01-03] MEDS ORDERED: PANT40EC PO (12:49)
[2023-01-03 13:31] VITALS: BP 128/68; PULSE 65; RESP 20; TEMP 97
== END 2023-01-03 14:20 | disposition home or self-care (01) | DRG 249 ==
LOC: MED 15:06 → MMU 21:11 → MTU 01-02 05:42
PROVIDERS: ADMIT Family Medicine; ATTEND Family Medicine
DX: R11.15 Cyclical vomiting syndrome unrelated to migraine (principal); E87.1 Hypo-osmolality and hyponatremia; F12.90 Cannabis use, unspecified, uncomplicated; Z79.1 Long term (current) use of non-steroidal anti-inflammatories (NSAID); Z79.899 Other long term (current) drug therapy
CPT/HCPCS: 36415; 80048; 80053; 83036; 83690; 83735; 85025; 87081; 96374; 96375; 96376; 99285; C9113; J1200; J1630; J2060; J2405; Q0169

== ENCOUNTER 2023-03-07 05:40 | Emergency (ER) | payer MEDICAID ==
[~2023-03-07] VITALS: Ht 165.1 cm; Wt 72.6 kg
[~2023-03-07 05:40] MED LIST changes: -ACET-10509 PO; -ATA25 PO; -BENZ-315 PO; -CAPS42.514 TP; -CYCL-711 PO; -DIPH25TA53 PO; -FAMO-90 PO; -HAL5 PO; -IBUP-2213 PO; -LID5T TP; -MAG-27 PO; -METO-485 PO; -METO-486 PO; -OMEP20EC11 PO; -OMEP40EC23 PO; -PROM25TA27 PO
[2023-03-07 05:49] VITALS: BP 131/61; PULSE 79; RESP 18; TEMP 98; O2SAT 96
[2023-03-07] MEDS ORDERED: LORazepam 2 MG/ML VIAL IM ONE (06:00)
[2023-03-07] MEDS ORDERED: HALOPERIDOL IM 5 MG/ML VIAL IM ONE (06:00)
[2023-03-07] MEDS ORDERED: LORazepam 2 MG/ML VIAL IVP ONE (06:25)
[2023-03-07] MEDS ORDERED: NACL 0.9% 1,000 ML IV ONE (06:25)
[2023-03-07] MEDS ORDERED: FAMOTIDINE 20 MG/2 ML VIAL IVP ONE (06:25)
[2023-03-07 07:30] VITALS: O2SAT 99
[2023-03-07] MEDS ORDERED: ONDA-188 PO (08:04)
[2023-03-07] MEDS ORDERED: PANT40EC PO (08:05)
[2023-03-07 08:26] VITALS: BP 126/86; PULSE 71; RESP 23; TEMP 97.8; O2SAT 99
== END 2023-03-07 08:25 | disposition home or self-care (01) ==
LOC: MED 05:40
DX: R11.2 Nausea with vomiting, unspecified (principal); Z79.899 Other long term (current) drug therapy
CPT/HCPCS: 96361; 96372; 96374; 96375; 99284; J1630; J2060; J3490; J7030

== ENCOUNTER 2023-03-26 09:19 | Emergency (ER) | payer MEDICAID ==
[~2023-03-26] VITALS: Ht 170.2 cm; Wt 81.6 kg
[~2023-03-26 09:19] MED LIST changes: +ONDA-188 PO
[2023-03-26 09:20] VITALS: BP 143/74; PULSE 73; RESP 18; TEMP 98; O2SAT 98
[2023-03-26] MEDS ORDERED: diphenhydrAMINE 50 MG/ML VIAL IM ONE (09:25)
[2023-03-26] MEDS ORDERED: HALOPERIDOL IM 5 MG/ML VIAL IM ONE (09:25)
[2023-03-26] MEDS ORDERED: NACL 0.9% 1,000 ML IV ONE ×2 (09:25→10:45)
[2023-03-26 09:56] LABS: BASOPHILS % (AUTO) 0.3 % (0.0-2.0); HEMATOCRIT 45.6 % (36-52); HEMOGLOBIN 15.6 g/dL (12.0-18.0); LYMPHOCYTES # (AUTO) 1.2 K/uL (2.0-11.5); LYMPHOCYTES % (AUTO) 10.7 % (20.5-51.1); MEAN CORPUSCULAR HEMOGLOBIN 28 pg (27-31); MEAN CORPUSCULAR HGB CONC 34 g/dL (33-37); MEAN CORPUSCULAR VOLUME 82.7 fL (80-94); MONOCYTES # (AUTO) 0.8 K/uL (0.8-1.0); NEUTROPHILS # (AUTO) 9.6 K/uL (1.8-7.7); PLATELET COUNT (AUTO) 238 K/uL (140-450); RED BLOOD CELL COUNT(AUTO) 5.51 MIL/uL (4.20-6.10); RED CELL DISTRIBUTION WIDTH 13.2 % (11.6-13.7); WHITE BLOOD COUNT (AUTO) 11.7 K/uL (4.8-10.8)
[2023-03-26] MEDS ORDERED: FAMOTIDINE 20 MG/2 ML VIAL IVP ONE (10:10)
[2023-03-26] MEDS ORDERED: diphenhydrAMINE 50 MG/ML VIAL IVP ONE (10:20)
[2023-03-26] MEDS ORDERED: LORazepam 2 MG/ML VIAL IVP ONE (10:20)
[2023-03-26 10:21] LABS: ALBUMIN 4.8 g/dL (3.4-5.0); ANION GAP 22.2 (8-16); CALCIUM 9.3 mg/dL (8.5-10.1); CARBON DIOXIDE 17.2 mmol/L (21-32); CREATININE 1.1 mg/dL (0.6-1.3); POTASSIUM 3.4 mmol/L (3.5-5.1); TOTAL BILIRUBIN 1.3 mg/dL (0.0-1.0); TOTAL PROTEIN, SERUM 7.8 g/dL (6.4-8.2)
[2023-03-26] MEDS ORDERED: ONDA-188 SL (11:31)
[2023-03-26 11:45] VITALS: BP 135/62; PULSE 79; RESP 16; TEMP 98; O2SAT 98
== END 2023-03-26 11:45 | disposition home or self-care (01) ==
LOC: MED 09:19
DX: R11.2 Nausea with vomiting, unspecified (principal); R10.9 Unspecified abdominal pain; K21.9 Gastro-esophageal reflux disease without esophagitis; Z79.899 Other long term (current) drug therapy
CPT/HCPCS: 36415; 80053; 83690; 85025; 93005; 96361; 96372; 96374; 96375; 99284; J1200; J1630; J2060; J3490; J7030

== ENCOUNTER 2023-04-24 15:15 | Emergency (ER) | payer MEDICAID ==
[~2023-04-24] VITALS: Ht 170.2 cm; Wt 83.9 kg
[2023-04-24 15:34] VITALS: BP 129/80; PULSE 88; RESP 16; TEMP 98.4; O2SAT 97
[2023-04-24 16:18] LABS: BASOPHILS # (AUTO) 0.1 K/uL (0.00-0.22); BASOPHILS % (AUTO) 0.7 % (0.0-2.0); EOSINOPHILS # (AUTO) 0.1 K/uL (0-0.4); EOSINOPHILS % (AUTO) 0.9 % (0.0-4.0); HEMOGLOBIN 15.8 g/dL (12.0-18.0); LYMPHOCYTES # (AUTO) 1.6 K/uL (2.0-11.5); LYMPHOCYTES % (AUTO) 21.2 % (20.5-51.1); MEAN CORPUSCULAR HEMOGLOBIN 29 pg (27-31); MEAN CORPUSCULAR HGB CONC 35 g/dL (33-37); MEAN CORPUSCULAR VOLUME 83.4 fL (80-94); MONOCYTES # (AUTO) 0.5 K/uL (0.8-1.0); MONOCYTES % (AUTO) 7.1 % (1.7-9.3); NEUTROPHILS # (AUTO) 5.4 K/uL (1.8-7.7); NEUTROPHILS % (AUTO) 70.1 % (42.2-75.2); PLATELET COUNT (AUTO) 183 K/uL (140-450); RED CELL DISTRIBUTION WIDTH 12.9 % (11.6-13.7); WHITE BLOOD COUNT (AUTO) 7.7 K/uL (4.8-10.8)
[2023-04-24 17:04] LABS: BILIRUBIN,DIRECT 0.1 mg/dL (0.0-0.3); TOTAL BILIRUBIN 0.4 mg/dL (0.0-1.0); TOTAL PROTEIN, SERUM 7.1 g/dL (6.4-8.2)
[2023-04-24 17:10] LABS: APPEARANCE,URINE CLEAR (CLEAR); BILIRUBIN,URINE NEGATIVE (NEGATIVE); BLOOD, URINE TRACE-I (NEGATIVE); COLOR,URINE YELLOW (YELLOW); LEUKOCYTE ESTERASE ,URINE NEGATIVE (NEGATIVE); NITRITE, URINE NEGATIVE (NEGATIVE); PROTEIN,URINE NEGATIVE (NEGATIVE); UGLUCOSE NEGATIVE (NEGATIVE); UROBILINOGEN,URINE 0.2 EU/dL (0.2 - 1)
[2023-04-24 17:25] LABS: ANION GAP 12.7 (8-16); CALCIUM 8.6 mg/dL (8.5-10.1); CARBON DIOXIDE 24.1 mmol/L (21-32); CREATININE 0.9 mg/dL (0.6-1.3); POTASSIUM 3.8 mmol/L (3.5-5.1)
[2023-04-24] MEDS ORDERED: PANT40EC PO (17:36)
== END 2023-04-24 17:37 | disposition home or self-care (01) ==
LOC: MED 15:15
DX: K21.9 Gastro-esophageal reflux disease without esophagitis (principal); F12.90 Cannabis use, unspecified, uncomplicated; Z79.899 Other long term (current) drug therapy
CPT/HCPCS: 36415; 80048; 80076; 81003; 83690; 85025; 99283

== ENCOUNTER 2023-04-30 14:24 | Emergency (ER) | payer MEDICAID, OTHER ==
[~2023-04-30] VITALS: Ht 170.2 cm; Wt 83.9 kg
[2023-04-30 14:38] VITALS: BP 132/80; PULSE 52; RESP 16; TEMP 98.2; O2SAT 98
[2023-04-30] MEDS ORDERED: HALOPERIDOL IM 5 MG/ML VIAL IM ONE (15:20)
[2023-04-30] MEDS ORDERED: diphenhydrAMINE 50 MG/ML VIAL IM ONE (15:20)
[2023-04-30 15:37] LABS: BASOPHILS # (AUTO) 0.1 K/uL (0.00-0.22); BASOPHILS % (AUTO) 0.5 % (0.0-2.0); EOSINOPHILS # (AUTO) 0.1 K/uL (0-0.4); EOSINOPHILS % (AUTO) 0.8 % (0.0-4.0); HEMATOCRIT 48.5 % (36-52); HEMOGLOBIN 17.2 g/dL (12.0-18.0); LYMPHOCYTES # (AUTO) 1.8 K/uL (2.0-11.5); LYMPHOCYTES % (AUTO) 16.3 % (20.5-51.1); MEAN CORPUSCULAR HEMOGLOBIN 29 pg (27-31); MEAN CORPUSCULAR HGB CONC 35 g/dL (33-37); MEAN CORPUSCULAR VOLUME 82.4 fL (80-94); MONOCYTES # (AUTO) 0.7 K/uL (0.8-1.0); MONOCYTES % (AUTO) 6.1 % (1.7-9.3); NEUTROPHILS # (AUTO) 8.6 K/uL (1.8-7.7); NEUTROPHILS % (AUTO) 76.3 % (42.2-75.2); PLATELET COUNT (AUTO) 228 K/uL (140-450); RED BLOOD CELL COUNT(AUTO) 5.89 MIL/uL (4.20-6.10); RED CELL DISTRIBUTION WIDTH 12.7 % (11.6-13.7); WHITE BLOOD COUNT (AUTO) 11.2 K/uL (4.8-10.8)
[2023-04-30 15:51] LABS: ANION GAP 18.8 (8-16); CALCIUM 9.4 mg/dL (8.5-10.1); CARBON DIOXIDE 20.9 mmol/L (21-32); CREATININE 1.3 mg/dL (0.6-1.3); POTASSIUM 3.7 mmol/L (3.5-5.1)
[2023-04-30 16:02] LABS: ALBUMIN 4.2 g/dL (3.4-5.0); BILIRUBIN,DIRECT 0.2 mg/dL (0.0-0.3); TOTAL BILIRUBIN 0.7 mg/dL (0.0-1.0); TOTAL PROTEIN, SERUM 8.5 g/dL (6.4-8.2)
[2023-04-30] MEDS ORDERED: SUCR1TAB35 PO (16:51)
[2023-04-30] MEDS ORDERED: ONDA-188 SL (16:51)
== END 2023-04-30 17:02 | disposition home or self-care (01) ==
LOC: MED 14:24
DX: K29.70 Gastritis, unspecified, without bleeding (principal); R11.2 Nausea with vomiting, unspecified; K21.9 Gastro-esophageal reflux disease without esophagitis; Z79.899 Other long term (current) drug therapy
CPT/HCPCS: 36415; 80048; 80076; 83690; 85025; 96372; 99284; J1200; J1630

== ENCOUNTER 2023-05-05 18:57 | Emergency (ER) | payer OTHER ==
[~2023-05-05] VITALS: Ht 177.8 cm; Wt 90.7 kg
[~2023-05-05 18:57] MED LIST changes: +SUCR1TAB35 PO
[2023-05-05 19:25] VITALS: BP 148/114; PULSE 88; RESP 17; TEMP 97.8; O2SAT 98
[2023-05-05 20:00] VITALS: TEMP 97.8
[2023-05-05 20:36] LABS: BASOPHILS % (AUTO) 0.2 % (0.0-2.0); EOSINOPHILS % (AUTO) 0.3 % (0.0-4.0); HEMOGLOBIN 15.6 g/dL (12.0-18.0); LYMPHOCYTES # (AUTO) 1.9 K/uL (2.0-11.5); LYMPHOCYTES % (AUTO) 15.3 % (20.5-51.1); MEAN CORPUSCULAR HEMOGLOBIN 29 pg (27-31); MEAN CORPUSCULAR HGB CONC 36 g/dL (33-37); MEAN CORPUSCULAR VOLUME 82.4 fL (80-94); MONOCYTES # (AUTO) 1.1 K/uL (0.8-1.0); MONOCYTES % (AUTO) 8.8 % (1.7-9.3); NEUTROPHILS # (AUTO) 9.4 K/uL (1.8-7.7); NEUTROPHILS % (AUTO) 75.4 % (42.2-75.2); PLATELET COUNT (AUTO) 227 K/uL (140-450); RED BLOOD CELL COUNT(AUTO) 5.34 MIL/uL (4.20-6.10); RED CELL DISTRIBUTION WIDTH 12.7 % (11.6-13.7); WHITE BLOOD COUNT (AUTO) 12.4 K/uL (4.8-10.8)
[2023-05-05] MEDS ORDERED: ONDANSETRON 4 MG/2 ML VIAL IVP ONE (20:50)
[2023-05-05] MEDS ORDERED: PANTOPRAZOLE 40 MG INJ VIAL IVP ONE (20:50)
[2023-05-05] MEDS ORDERED: HALOPERIDOL IM 5 MG/ML VIAL IM ONE (20:50)
[2023-05-05] MEDS ORDERED: DICYCLOMINE HCL LIQUID 20 MG, ALUMINUM HYD/MAG/SIMETHICONE 30 ML, LIDOCAINE VISCOUS 2% ... PO ONE ×3 (20:50)
[2023-05-05 20:54] LABS: ALBUMIN 3.9 g/dL (3.4-5.0); ANION GAP 17.8 (8-16); CALCIUM 8.9 mg/dL (8.5-10.1); CARBON DIOXIDE 22.5 mmol/L (21-32); CREATININE 1.2 mg/dL (0.6-1.3); POTASSIUM 3.3 mmol/L (3.5-5.1); TOTAL BILIRUBIN 0.9 mg/dL (0.0-1.0); TOTAL PROTEIN, SERUM 7.7 g/dL (6.4-8.2)
[2023-05-05] MEDS ORDERED: ALUMINUM HYD/MAG/SIMETHICONE 30 ML UDC ONE (20:56)
[2023-05-05] MEDS ORDERED: DICYCLOMINE HCL LIQUID 10 MG/5 ML UDC ONE (20:56)
[2023-05-05] MEDS ORDERED: LORazepam 2 MG/ML VIAL IVP ONE (21:30)
[2023-05-05] MEDS ORDERED: PANT40EC PO (23:08)
[2023-05-05] MEDS ORDERED: MAG355OR2 PO (23:09)
[2023-05-05] MEDS ORDERED: KCL 20 MEQ IN 100 mL PREMIX 200 ML IV ONE (23:15)
[2023-05-05] MEDS ORDERED: NACL 0.9% 1,000 ML IV ONE (23:15)
[2023-05-05 23:33] VITALS: BP 111/54; PULSE 85; RESP 12
[2023-05-05] MEDS ORDERED: POTASSIUM CHLORIDE 10 MEQ TABER PO ONE (23:55)
[2023-05-06 00:52] VITALS: O2SAT 98
== END 2023-05-06 01:00 | disposition home or self-care (01) ==
LOC: MED 18:57
DX: R10.13 Epigastric pain (principal); R11.2 Nausea with vomiting, unspecified; E86.0 Dehydration; F12.90 Cannabis use, unspecified, uncomplicated; K21.9 Gastro-esophageal reflux disease without esophagitis; Z79.899 Other long term (current) drug therapy
CPT/HCPCS: 36415; 80053; 83690; 85025; 96361; 96372; 96374; 96375; 99284; C9113; J1630; J2060; J2405; J3480; J7030

== ENCOUNTER 2023-05-08 03:33 | Emergency (ER) | payer OTHER ==
[~2023-05-08] VITALS: Ht 170.2 cm; Wt 81.6 kg
[~2023-05-08 03:33] MED LIST changes: +MAG355OR2 PO
[2023-05-08 03:36] VITALS: BP 147/97; PULSE 100; RESP 20; TEMP 97; O2SAT 97
[2023-05-08] MEDS ORDERED: METOCLOPRAMIDE 10 MG/2 ML INJ VIAL IVP ONE (03:45)
[2023-05-08] MEDS ORDERED: NACL 0.9% 1,000 ML IV ONE (03:45)
[2023-05-08] MEDS ORDERED: PANTOPRAZOLE 40 MG INJ VIAL IVP ONE (04:00)
[2023-05-08] MEDS ORDERED: FAMOTIDINE 20 MG/2 ML VIAL IVP ONE (04:00)
[2023-05-08 04:33] LABS: BASOPHILS % (AUTO) 0.4 % (0.0-2.0); EOSINOPHILS # (AUTO) 0.1 K/uL (0-0.4); EOSINOPHILS % (AUTO) 0.6 % (0.0-4.0); HEMATOCRIT 42.8 % (36-52); HEMOGLOBIN 14.9 g/dL (12.0-18.0); LYMPHOCYTES # (AUTO) 1.6 K/uL (2.0-11.5); LYMPHOCYTES % (AUTO) 19.2 % (20.5-51.1); MEAN CORPUSCULAR HEMOGLOBIN 29 pg (27-31); MEAN CORPUSCULAR HGB CONC 35 g/dL (33-37); MONOCYTES # (AUTO) 0.6 K/uL (0.8-1.0); NEUTROPHILS % (AUTO) 72.8 % (42.2-75.2); PLATELET COUNT (AUTO) 213 K/uL (140-450); RED BLOOD CELL COUNT(AUTO) 5.22 MIL/uL (4.20-6.10); WHITE BLOOD COUNT (AUTO) 8.3 K/uL (4.8-10.8)
[2023-05-08] MEDS ORDERED: diphenhydrAMINE 50 MG/ML VIAL IVP ONE (04:50)
[2023-05-08] MEDS ORDERED: HALOPERIDOL IM 5 MG/ML VIAL IVP ONE (04:50)
[2023-05-08 05:13] LABS: ALBUMIN 3.8 g/dL (3.4-5.0); ANION GAP 16.7 (8-16); CARBON DIOXIDE 22.6 mmol/L (21-32); POTASSIUM 3.3 mmol/L (3.5-5.1); TOTAL BILIRUBIN 0.7 mg/dL (0.0-1.0); TOTAL PROTEIN, SERUM 6.9 g/dL (6.4-8.2)
[2023-05-08] MEDS ORDERED: DIAZEPAM PFS 10 MG/2 ML SYR IVP ONE (05:20)
[2023-05-08] MEDS ORDERED: FAMO-90 PO (06:48)
[2023-05-08] MEDS ORDERED: PANT40EC PO (06:48)
[2023-05-08] MEDS ORDERED: ONDA-188 PO (06:48)
[2023-05-08] MEDS ORDERED: SUCR1TAB35 PO (06:48)
[2023-05-08 07:04] VITALS: BP 111/66; PULSE 60; RESP 20; TEMP 97; O2SAT 95
== END 2023-05-08 07:04 | disposition home or self-care (01) ==
LOC: MED 03:33
DX: K29.70 Gastritis, unspecified, without bleeding (principal); K21.9 Gastro-esophageal reflux disease without esophagitis; Z79.899 Other long term (current) drug therapy
CPT/HCPCS: 36415; 71045; 80053; 83690; 85025; 93005; 96374; 96375; 99291; C9113; J1200; J1630; J2765; J3360; Q0092

== ENCOUNTER 2023-05-08 14:42 | Observation (INO) | payer OTHER ==
[~2023-05-08] VITALS: Ht 170.2 cm; Wt 76.7 kg
[~2023-05-08 14:42] MED LIST changes: +FAMO-90 PO
[2023-05-08 14:44] VITALS: BP 133/69; PULSE 78; RESP 19; TEMP 98.6; O2SAT 96
[2023-05-08] MEDS ORDERED: NACL 0.9% 2,000 ML IV ONE (15:20)
[2023-05-08] MEDS ORDERED: METOCLOPRAMIDE 10 MG/2 ML INJ VIAL IVP ONE (15:20)
[2023-05-08 15:49] LABS: BASOPHILS % (AUTO) 0.5 % (0.0-2.0); EOSINOPHILS % (AUTO) 0.5 % (0.0-4.0); HEMATOCRIT 42.9 % (36-52); HEMOGLOBIN 15.3 g/dL (12.0-18.0); LYMPHOCYTES # (AUTO) 2.4 K/uL (2.0-11.5); LYMPHOCYTES % (AUTO) 30.9 % (20.5-51.1); MEAN CORPUSCULAR HEMOGLOBIN 29 pg (27-31); MEAN CORPUSCULAR HGB CONC 36 g/dL (33-37); MEAN CORPUSCULAR VOLUME 81.3 fL (80-94); MONOCYTES # (AUTO) 0.8 K/uL (0.8-1.0); MONOCYTES % (AUTO) 10.1 % (1.7-9.3); NEUTROPHILS # (AUTO) 4.5 K/uL (1.8-7.7); PLATELET COUNT (AUTO) 240 K/uL (140-450); RED BLOOD CELL COUNT(AUTO) 5.28 MIL/uL (4.20-6.10); RED CELL DISTRIBUTION WIDTH 12.9 % (11.6-13.7); WHITE BLOOD COUNT (AUTO) 7.7 K/uL (4.8-10.8)
[2023-05-08 16:05] LABS: ANION GAP 16.3 (8-16); CALCIUM 9.5 mg/dL (8.5-10.1); CARBON DIOXIDE 21.4 mmol/L (21-32); POTASSIUM 3.7 mmol/L (3.5-5.1)
[2023-05-08] MEDS ORDERED: METOCLOPRAMIDE 10 MG/2 ML INJ VIAL ONE (16:25)
[2023-05-08] MEDS ORDERED: ONDANSETRON 4 MG ODT PO ONE (16:45)
[2023-05-08] MEDS ORDERED: LORazepam 2 MG/ML VIAL IVP ONE (16:45)
[2023-05-08] MEDS ORDERED: ACETAMINOPHEN 325 MG TAB PO PRN (16:50)
[2023-05-08] MEDS ORDERED: ONDANSETRON 4 MG/2 ML VIAL IVP PRN (16:50)
[2023-05-08] MEDS ORDERED: NACL 0.9% 1,000 ML IV SCH (16:50)
[2023-05-08 18:59] LABS: AMPHETAMINE, URINE NEGATIVE ng/ml (NEG <=1000); BARBITURATE, URINE NEGATIVE ng/ml (NEG <=200); BENZODIAZEPINE, URINE POSITIVE ng/mL (NEG <=200); CANNABINOID, URINE POSITIVE ng/mL (NEG <=50); COCAINE, URINE NEGATIVE ng/mL (NEG <=300); OPIATE, URINE NEGATIVE ng/mL (NEG <=2000); PHENCYCLIDINE SCREEN,URINE NEGATIVE ng/mL (NEG <=25)
[2023-05-08 20:06] VITALS: O2SAT 96
[2023-05-08] MEDS ORDERED: PANTOPRAZOLE 40 MG INJ VIAL IVP SCH (21:00)
[2023-05-08 21:50] VITALS: PULSE 64; RESP 16; O2SAT 100
[2023-05-08] MEDS ORDERED: MELATONIN 3 MG TAB PO PRN (22:35)
[2023-05-09] MEDS ORDERED: METOCLOPRAMIDE 10 MG/2 ML INJ VIAL IVP SCH
[2023-05-09 04:00] VITALS: BP 115/51; PULSE 68; RESP 18; TEMP 98.1; O2SAT 100
== END 2023-05-09 05:50 | disposition left against medical advice (07) ==
LOC: MED 14:42 → MMU 16:52 → MTU 19:55
PROVIDERS: ADMIT Internal Medicine; ATTEND Internal Medicine
DX: K92.0 Hematemesis (principal); E86.0 Dehydration; F12.90 Cannabis use, unspecified, uncomplicated; Z87.891 Personal history of nicotine dependence; Z79.899 Other long term (current) drug therapy
CPT/HCPCS: 36415; 74176; 80048; 80305; 83690; 85025; 87081; 96361; 96374; 96375; 96376; 99285; C9113; G0378; J2060; J2405; J2765; Q0162; Q0163

== ENCOUNTER 2023-07-12 11:35 | Emergency (ER) | payer OTHER ==
[~2023-07-12] VITALS: Ht 167.6 cm; Wt 81.6 kg
[~2023-07-12 11:35] MED LIST changes: -FAMO-90 PO; -MAG355OR2 PO; -ONDA-188 PO; -SUCR1TAB35 PO
[2023-07-12 11:37] VITALS: BP 128/68; PULSE 78; RESP 18; TEMP 98; O2SAT 98
[2023-07-12] MEDS: NACL 0.9% 1,000 ML IV ONE (12:01)
[2023-07-12] MEDS: FAMOTIDINE 20 MG/2 ML VIAL IVP ONE (12:07)
[2023-07-12] MEDS: METOCLOPRAMIDE 10 MG/2 ML INJ VIAL IVP ONE ×2 (12:10→13:16)
[2023-07-12] MEDS: diphenhydrAMINE 50 MG/ML VIAL IVP ONE (13:22)
[2023-07-12 14:27] VITALS: BP 135/82; PULSE 78; RESP 16; TEMP 98.8; O2SAT 99
== END 2023-07-12 14:27 | disposition home or self-care (01) ==
LOC: MED 11:35
DX: F12.188 Cannabis abuse with other cannabis-induced disorder (principal); R11.10 Vomiting, unspecified; K21.9 Gastro-esophageal reflux disease without esophagitis; F41.9 Anxiety disorder, unspecified; Z88.8 Allergy status to other drugs, medicaments and biological substances; Z79.899 Other long term (current) drug therapy
CPT/HCPCS: 96361; 96374; 96375; 96376; 99284; J1200; J2765; J3490; J7030

== ENCOUNTER 2023-08-16 08:52 | Emergency (ER) | payer OTHER ==
[~2023-08-16] VITALS: Ht 172.7 cm; Wt 81.6 kg
[2023-08-16 09:01] VITALS: BP 144/96; PULSE 96; RESP 18; TEMP 98.7; O2SAT 99
[2023-08-16] MEDS ORDERED: ONDANSETRON 4 MG/2 ML VIAL IVP ONE (09:40)
[2023-08-16] MEDS: NACL 0.9% 1,000 ML IV ONE (09:54)
[2023-08-16] MEDS: METOCLOPRAMIDE 10 MG/2 ML INJ VIAL IVP ONE ×2 (09:58→11:42)
[2023-08-16 10:15] LABS: BASOPHILS % (AUTO) 0.5 % (0.0-2.0); EOSINOPHILS % (AUTO) 0.1 % (0.0-4.0); HEMATOCRIT 45.9 % (36-52); LYMPHOCYTES # (AUTO) 1.1 K/uL (2.0-11.5); MEAN CORPUSCULAR HEMOGLOBIN 29 pg (27-31); MEAN CORPUSCULAR HGB CONC 35 g/dL (33-37); MEAN CORPUSCULAR VOLUME 83.4 fL (80-94); MONOCYTES # (AUTO) 0.3 K/uL (0.8-1.0); MONOCYTES % (AUTO) 3.4 % (1.7-9.3); NEUTROPHILS # (AUTO) 8.2 K/uL (1.8-7.7); PLATELET COUNT (AUTO) 244 K/uL (140-450); RED CELL DISTRIBUTION WIDTH 13.2 % (11.6-13.7); WHITE BLOOD COUNT (AUTO) 9.7 K/uL (4.8-10.8)
[2023-08-16 10:32] LABS: ANION GAP 17.4 (8-16); CALCIUM 9.4 mg/dL (8.5-10.1); CARBON DIOXIDE 22.4 mmol/L (21-32); POTASSIUM 3.8 mmol/L (3.5-5.1)
[2023-08-16 10:39] LABS: ALBUMIN 4.5 g/dL (3.4-5.0); BILIRUBIN,DIRECT 0.1 mg/dL (0.0-0.3); TOTAL BILIRUBIN 0.7 mg/dL (0.0-1.0); TOTAL PROTEIN, SERUM 7.6 g/dL (6.4-8.2)
[2023-08-16] MEDS ORDERED: METO-485 PO (11:02)
[2023-08-16 11:54] VITALS: BP 103/56; PULSE 79; RESP 18; TEMP 98.3; O2SAT 97
== END 2023-08-16 11:54 | disposition home or self-care (01) ==
LOC: MED 08:52
DX: R11.2 Nausea with vomiting, unspecified (principal); F12.90 Cannabis use, unspecified, uncomplicated; K21.9 Gastro-esophageal reflux disease without esophagitis; Z71.6 Tobacco abuse counseling; Z79.899 Other long term (current) drug therapy; Z88.8 Allergy status to other drugs, medicaments and biological substances
CPT/HCPCS: 36415; 80048; 80076; 83690; 85025; 93005; 96361; 96374; 96376; 99284; J2765; J7030

== ENCOUNTER 2023-08-20 07:43 | Emergency (ER) | payer MEDICAID, OTHER ==
[~2023-08-20] VITALS: Ht 172.7 cm; Wt 81.6 kg
[~2023-08-20 07:43] MED LIST changes: +METO-485 PO
[2023-08-20 08:02] VITALS: BP 126/71; PULSE 80; RESP 18; TEMP 98.3; O2SAT 100
[2023-08-20] MEDS: PROCHLORPERAZINE 10 MG/2 ML VIAL IVP ONE (08:26)
[2023-08-20] MEDS: diphenhydrAMINE 50 MG/ML VIAL IVP ONE (08:27)
[2023-08-20 08:28] LABS: BASOPHILS % (AUTO) 0.4 % (0.0-2.0); EOSINOPHILS % (AUTO) 0.2 % (0.0-4.0); HEMATOCRIT 46.6 % (36-52); HEMOGLOBIN 16.3 g/dL (12.0-18.0); LYMPHOCYTES % (AUTO) 11.7 % (20.5-51.1); MEAN CORPUSCULAR HEMOGLOBIN 29 pg (27-31); MEAN CORPUSCULAR HGB CONC 35 g/dL (33-37); MEAN CORPUSCULAR VOLUME 83.3 fL (80-94); MONOCYTES # (AUTO) 0.3 K/uL (0.8-1.0); MONOCYTES % (AUTO) 3.3 % (1.7-9.3); NEUTROPHILS # (AUTO) 7.4 K/uL (1.8-7.7); NEUTROPHILS % (AUTO) 84.4 % (42.2-75.2); PLATELET COUNT (AUTO) 228 K/uL (140-450); RED BLOOD CELL COUNT(AUTO) 5.59 MIL/uL (4.20-6.10); RED CELL DISTRIBUTION WIDTH 13.1 % (11.6-13.7); WHITE BLOOD COUNT (AUTO) 8.8 K/uL (4.8-10.8)
[2023-08-20] MEDS: KETOROLAC 30 MG/ML VIAL IVP ONE (08:28)
[2023-08-20] MEDS: DEXAMETHASONE 10 MG/ML VIAL IVP ONE (08:28)
[2023-08-20] MEDS: LORazepam 2 MG/ML VIAL IVP ONE (08:29)
[2023-08-20 08:49] LABS: ANION GAP 16.1 (8-16); CALCIUM 9.2 mg/dL (8.5-10.1); CARBON DIOXIDE 22.8 mmol/L (21-32); CREATININE 0.9 mg/dL (0.6-1.3); POTASSIUM 3.9 mmol/L (3.5-5.1)
[2023-08-20] MEDS: NACL 0.9% 1,000 ML IV ONE (08:51)
[2023-08-20 09:01] LABS: ALBUMIN 4.1 g/dL (3.4-5.0); BILIRUBIN,DIRECT 0.1 mg/dL (0.0-0.3); TOTAL BILIRUBIN 0.6 mg/dL (0.0-1.0); TOTAL PROTEIN, SERUM 7.2 g/dL (6.4-8.2)
[2023-08-20] MEDS: FAMOTIDINE 20 MG TAB PO ONE (09:25)
[2023-08-20] MEDS: ALUMINUM HYD/MAG/SIMETHICONE 30 ML UDC PO ONE (09:25)
[2023-08-20] MEDS ORDERED: FAMO-90 PO (09:42)
[2023-08-20] MEDS ORDERED: [UNRECOGNIZED DRUG - CODE] PO (09:42)
[2023-08-20 10:24] VITALS: BP 119/59; PULSE 62; RESP 16; TEMP 98; O2SAT 99
== END 2023-08-20 10:24 | disposition home or self-care (01) ==
LOC: MED 07:43
DX: R10.13 Epigastric pain (principal); R11.2 Nausea with vomiting, unspecified; K21.9 Gastro-esophageal reflux disease without esophagitis; Z79.899 Other long term (current) drug therapy; Z88.8 Allergy status to other drugs, medicaments and biological substances
CPT/HCPCS: 36415; 80048; 80076; 83690; 85025; 96361; 96374; 96375; 99284; J0780; J1100; J1200; J1885; J2060; J7030

== ENCOUNTER 2023-08-22 06:45 | Emergency (ER) | payer OTHER ==
[~2023-08-22] VITALS: Ht 170.2 cm; Wt 79.4 kg
[~2023-08-22 06:45] MED LIST changes: +FAMO-90 PO; +[UNRECOGNIZED DRUG - CODE] PO
[2023-08-22 06:55] VITALS: BP 124/70; PULSE 74; RESP 16; TEMP 97.4; O2SAT 97
[2023-08-22] MEDS: FAMOTIDINE 20 MG/2 ML VIAL IVP ONE (07:25)
[2023-08-22] MEDS: NACL 0.9% 1,000 ML IV ONE (07:26)
[2023-08-22] MEDS: PROCHLORPERAZINE 10 MG/2 ML VIAL IVP ONE (07:26)
== END 2023-08-22 09:28 | disposition home or self-care (01) ==
LOC: MED 06:45
DX: R11.2 Nausea with vomiting, unspecified (principal); R19.7 Diarrhea, unspecified; K21.9 Gastro-esophageal reflux disease without esophagitis; Z79.899 Other long term (current) drug therapy; Z88.8 Allergy status to other drugs, medicaments and biological substances
CPT/HCPCS: 96361; 96374; 96375; 99284; J0780; J3490; J7030

== ENCOUNTER 2023-08-26 10:49 | Emergency (ER) | payer OTHER ==
[~2023-08-26] VITALS: Ht 172.7 cm; Wt 93.5 kg
[2023-08-26 11:05] VITALS: BP 129/87; PULSE 71; RESP 20; TEMP 98.2; O2SAT 97
[2023-08-26] MEDS: NACL 0.9% 1,000 ML IV ONE (12:19)
[2023-08-26] MEDS: FAMOTIDINE 20 MG/2 ML VIAL IVP ONE (12:20)
[2023-08-26] MEDS: diphenhydrAMINE 50 MG/ML VIAL IVP ONE (12:22)
[2023-08-26] MEDS: PROCHLORPERAZINE 10 MG/2 ML VIAL IVP ONE (12:23)
[2023-08-26 13:16] VITALS: BP 101/69; PULSE 69; RESP 19; TEMP 98.5; O2SAT 98
== END 2023-08-26 13:18 | disposition home or self-care (01) ==
LOC: MED 10:49
DX: R11.10 Vomiting, unspecified (principal); K21.9 Gastro-esophageal reflux disease without esophagitis; Z88.8 Allergy status to other drugs, medicaments and biological substances; Z79.899 Other long term (current) drug therapy
CPT/HCPCS: 96361; 96374; 96375; 99284; J0780; J1200; J3490; J7030

== ENCOUNTER 2023-09-02 17:44 | Emergency (ER) | payer OTHER ==
[~2023-09-02] VITALS: Ht 172.7 cm; Wt 92.5 kg
[2023-09-02 17:55] VITALS: BP 118/68; PULSE 89; RESP 12; TEMP 98.1; O2SAT 98
[2023-09-02] MEDS: METOCLOPRAMIDE 10 MG/2 ML INJ VIAL IVP ONE (18:00)
[2023-09-02] MEDS: diphenhydrAMINE 50 MG/ML VIAL IVP ONE (18:02)
[2023-09-02 18:47] VITALS: BP 118/68; PULSE 89; RESP 12
[2023-09-02 18:48] VITALS: O2SAT 98
== END 2023-09-02 18:59 | disposition home or self-care (01) ==
LOC: MED 17:44
DX: R10.13 Epigastric pain (principal); R11.2 Nausea with vomiting, unspecified; K21.9 Gastro-esophageal reflux disease without esophagitis; Z79.899 Other long term (current) drug therapy
CPT/HCPCS: 96374; 96375; 99284; J1200; J2765

== ENCOUNTER 2023-09-05 07:32 | Emergency (ER) | payer OTHER ==
[~2023-09-05] VITALS: Ht 170.2 cm; Wt 90.7 kg
[2023-09-05 07:35] VITALS: BP 157/96; PULSE 87; RESP 18; TEMP 98.4; O2SAT 97
[2023-09-05 08:28] VITALS: BP 121/79; PULSE 79; RESP 20
[2023-09-05] MEDS: SUCRALFATE 1 GM TAB PO ONE (08:33)
[2023-09-05] MEDS: PROCHLORPERAZINE 10 MG/2 ML VIAL IVP ONE (08:38)
[2023-09-05] MEDS: diphenhydrAMINE 50 MG/ML VIAL IVP ONE (08:40)
[2023-09-05] MEDS: NACL 0.9% 1,000 ML IV ONE (08:42)
[2023-09-05 08:55] VITALS: O2SAT 95
[2023-09-05] MEDS ORDERED: SUCR1SUS7 PO (09:36)
[2023-09-05] MEDS ORDERED: PROC-87 PO (09:36)
== END 2023-09-05 09:42 | disposition home or self-care (01) ==
LOC: MED 07:32
DX: R10.13 Epigastric pain (principal); R11.10 Vomiting, unspecified; K21.9 Gastro-esophageal reflux disease without esophagitis; Z79.899 Other long term (current) drug therapy; Z88.8 Allergy status to other drugs, medicaments and biological substances
CPT/HCPCS: 96361; 96374; 96375; 99284; J0780; J1200; J7030

== ENCOUNTER 2023-09-22 18:12 | Emergency (ER) | payer OTHER ==
[~2023-09-22] VITALS: Ht 167.6 cm; Wt 68.0 kg
[~2023-09-22 18:12] MED LIST changes: +PROC-87 PO; +SUCR1SUS7 PO
[2023-09-22 18:17] VITALS: BP 120/81; PULSE 88; RESP 16; TEMP 98.1; O2SAT 97
[2023-09-22] MEDS ORDERED: MORPHINE SULFATE 4 MG/ML SYR ONE (21:03)
[2023-09-22] MEDS: MORPHINE SULFATE 4 MG/ML SYR IM ONE (21:06)
[2023-09-22] MEDS: KETOROLAC 60 MG/2 ML VIAL IM ONE (21:19)
[2023-09-22] MEDS ORDERED: ONDANSETRON 4 MG ODT PO ONE (22:00)
== END 2023-09-22 22:20 | disposition home or self-care (01) ==
LOC: MED 18:12
DX: G89.29 Other chronic pain (principal); R10.13 Epigastric pain; R11.2 Nausea with vomiting, unspecified; R03.0 Elevated blood-pressure reading, without diagnosis of hypertension; K21.9 Gastro-esophageal reflux disease without esophagitis; Z79.1 Long term (current) use of non-steroidal anti-inflammatories (NSAID); Z79.899 Other long term (current) drug therapy; Z88.8 Allergy status to other drugs, medicaments and biological substances
CPT/HCPCS: 96372; 99284; J1885; J2270

== ENCOUNTER 2023-10-06 17:30 | Emergency (ER) | payer OTHER ==
[~2023-10-06] VITALS: Ht 167.6 cm; Wt 72.6 kg
[2023-10-06 17:33] VITALS: BP 129/78; PULSE 84; RESP 16; TEMP 98; O2SAT 98
== END 2023-10-06 19:08 | disposition left against medical advice (07) ==
LOC: MED 17:30
DX: R10.9 Unspecified abdominal pain (principal); Z53.21 Procedure and treatment not carried out due to patient leaving prior to being seen by health care provider

== ENCOUNTER 2023-11-23 14:30 | Emergency (ER) | payer OTHER ==
[~2023-11-23] VITALS: Ht 167.6 cm; Wt 77.1 kg
[2023-11-23 14:39] VITALS: BP 137/78; PULSE 86; RESP 15; TEMP 97.3; O2SAT 97
[2023-11-23 14:40] VITALS: BP 113/72; PULSE 86; RESP 22; O2SAT 98
[2023-11-23] MEDS: PANTOPRAZOLE 40 MG INJ VIAL IVP ONE (15:10)
[2023-11-23] MEDS: ALUMINUM HYD/MAG/SIMETHICONE 30 ML UDC PO ONE (15:12)
[2023-11-23 15:54] LABS: BASOPHILS % (AUTO) 0.2 % (0.0-2.0); EOSINOPHILS % (AUTO) 0.2 % (0.0-4.0); HEMATOCRIT 46.6 % (36-52); HEMOGLOBIN 15.8 g/dL (12.0-18.0); LYMPHOCYTES # (AUTO) 0.9 K/uL (2.0-11.5); LYMPHOCYTES % (AUTO) 8.9 % (20.5-51.1); MEAN CORPUSCULAR HEMOGLOBIN 29 pg (27-31); MEAN CORPUSCULAR HGB CONC 34 g/dL (33-37); MEAN CORPUSCULAR VOLUME 83.8 fL (80-94); MONOCYTES # (AUTO) 0.5 K/uL (0.8-1.0); MONOCYTES % (AUTO) 5.3 % (1.7-9.3); NEUTROPHILS # (AUTO) 8.6 K/uL (1.8-7.7); NEUTROPHILS % (AUTO) 85.4 % (42.2-75.2); PLATELET COUNT (AUTO) 201 K/uL (140-450); RED BLOOD CELL COUNT(AUTO) 5.56 MIL/uL (4.20-6.10); RED CELL DISTRIBUTION WIDTH 13.1 % (11.6-13.7)
[2023-11-23 16:04] LABS: ANION GAP 15.8 (8-16); CALCIUM 9.1 mg/dL (8.5-10.1); CARBON DIOXIDE 23.6 mmol/L (21-32); CREATININE 1.1 mg/dL (0.6-1.3); POTASSIUM 3.4 mmol/L (3.5-5.1)
[2023-11-23 16:06] LABS: ALBUMIN 4.1 g/dL (3.4-5.0); BILIRUBIN,DIRECT 0.2 mg/dL (0.0-0.3); TOTAL BILIRUBIN 0.8 mg/dL (0.0-1.0); TOTAL PROTEIN, SERUM 7.2 g/dL (6.4-8.2)
== END 2023-11-23 16:49 | disposition home or self-care (01) ==
LOC: MED 14:30
DX: K29.70 Gastritis, unspecified, without bleeding (principal); R11.2 Nausea with vomiting, unspecified; K21.9 Gastro-esophageal reflux disease without esophagitis; Z79.1 Long term (current) use of non-steroidal anti-inflammatories (NSAID); Z79.899 Other long term (current) drug therapy; Z88.8 Allergy status to other drugs, medicaments and biological substances
CPT/HCPCS: 36415; 80048; 80076; 83690; 85025; 96374; 99283; J2470

== ENCOUNTER 2023-12-15 08:15 | Emergency (ER) | payer OTHER ==
[~2023-12-15] VITALS: Ht 170.2 cm; Wt 77.1 kg
[2023-12-15 08:20] VITALS: BP 141/57; PULSE 85; RESP 16; TEMP 97.3; O2SAT 96
[2023-12-15] MEDS: NACL 0.9% 1,000 ML IV ONE (08:47)
[2023-12-15] MEDS: PROCHLORPERAZINE 10 MG/2 ML VIAL IVP ONE (08:48)
[2023-12-15] MEDS: diphenhydrAMINE 50 MG/ML VIAL IVP ONE (08:48)
[2023-12-15] MEDS: PANTOPRAZOLE 40 MG INJ VIAL IVP ONE (08:49)
[2023-12-15] MEDS: HALOPERIDOL IM 5 MG/ML VIAL IM ONE (09:20)
[2023-12-15] MEDS ORDERED: ONDA-188 SL (09:49)
[2023-12-15 10:10] VITALS: BP 135/62; PULSE 88; RESP 16; TEMP 98.1; O2SAT 99
== END 2023-12-15 10:10 | disposition home or self-care (01) ==
LOC: MED 08:15
DX: G89.29 Other chronic pain (principal); R10.9 Unspecified abdominal pain; R11.2 Nausea with vomiting, unspecified; F12.20 Cannabis dependence, uncomplicated; K21.9 Gastro-esophageal reflux disease without esophagitis; Z79.1 Long term (current) use of non-steroidal anti-inflammatories (NSAID); Z79.899 Other long term (current) drug therapy
CPT/HCPCS: 96361; 96372; 96374; 96375; 99284; J0780; J1200; J1630; J2470; J7030